=== PATIENT | female | born 1975 | race Two or more races ===

== ENCOUNTER 2024-11-19 17:19 | Emergency (ER) | payer BC, SELFPAY ==
[2024-11-19 17:20] VITALS: BMI 25.9
[2024-11-19 17:33] VITALS: BP 110/73; PULSE 75; RESP 17; TEMP 36.4; O2SAT 100
--- NOTE | 2024-11-19 17:46 | XR_ITS ---
Examination: CT abdomen and pelvis without contrast. Coronal 3-D reconstructions. Sagittal 2-D reconstructions. Date and time of exam:November 19, 2024 at 1847 hours Comparison September 25, 2004 INDICATIONS: Sudden onset mid abdominal pain with nausea today and beginning 3 days ago CTDI: vol (mGy): 8.69 DLP: (mGycm): 445 Technique: Axial images of the abdomen have been obtained, 3 mm slice thickness Intravenous contrast material has not been administered. Low dose protocols were performed. One or more of the following dose reduction techniques were used; automated exposure control, adjustment of the mA and/or KV according to patient size, use of iterative reconstruction technique. Findings: Small liver cysts Mucosal thickening in the body of the stomach coronal image 52 No gallstones No pancreatic or adrenal mass No renal or ureteral calculi Aorta normal size 4 mm fat-containing umbilical hernia Normal appendix No bowel obstruction No diverticulitis Anteverted uterus No adnexal mass Urinary bladder intact Moderate disc narrowing L5-S1 IMPRESSION: Gastritis pattern No renal or ureteral calculi, no hydronephrosis Normal appendix No bowel obstruction or diverticulitis
--- NOTE | 2024-11-19 17:47 | PD.EDRME ---
Rapid Medical Screening Exam RME Arrival date/time: 11/19/24 17:19 48-year-old female with no known medical history presents to the emergency room with a chief complaint of 10 out of 10 abdominal pain x 1 day I have greeted and performed a focused initial assessment of this patient. A comprehensive ED assessment and evaluation of the patient, analysis of all test results, and completion of the medical decision making process will be conducted by additional ED providers. Chief Complaint: Abdominal Pain Vital signs: Vital Signs Temperature 97.6 F 11/19/24 17:33 Pulse Rate 75 11/19/24 17:33 Respiratory Rate 17 11/19/24 17:33 Blood Pressure 110/73 11/19/24 17:33 Pulse Oximetry (%) 100 11/19/24 17:33 Oxygen Delivery Method Room Air 11/19/24 17:33 Vital signs reviewed by provider: Yes
[2024-11-19] MEDS: HYDROcodone/APAP 5/325 TABLET 1 TAB PO (18:01)
[2024-11-19] MEDS: ONDANSETRON ODT 4 MG TABRAP PO (18:01)
[2024-11-19] MEDS: MG HYD/AL HYD/SIME (Maalox Reg) SUSP 30 ML UDC PO (18:01)
[2024-11-19 18:27] LABS: Collection Type, Urine Clean Catch
[2024-11-19 18:34] LABS: Basophils % (Auto) 0 % (0-2.5); Eosinophils # (Auto) 0.2 Thou/mm3 (0.0-0.5); Eosinophils % (Auto) 2 % (0-10); Hematocrit 41.1 % (36.0-46.0); Hemoglobin 13.9 g/dL (12.0-16.0); Immature Granulocytes % (Auto) 0 % (0-0); Immature Granulocytes Auto 0.03 Thou/mm3 (0.00-0.00); Lymphocytes # (Auto) 2.3 Thou/mm3 (1.0-4.8); Lymphocytes % (Auto) 31 % (10-50); Mean Corpuscular HGB Conc 33.8 g/dl (31.0-37.0); Mean Corpuscular Hemoglobin 30.9 pg (25.0-35.0); Mean Corpuscular Volume 91 fL (80-100); Monocytes # (Auto) 0.6 Thou/mm3 (0.0-0.8); Monocytes % (Auto) 8 % (0-12); Neutrophils # (Auto) 4.4 Thou/mm3 (1.8-7.7); Neutrophils % (Auto) 59 % (37-80); Nucleated Red Blood Cell % 0 /100 WBC (0); Platelet Count 263 Thou/mm3 (140-440); RDW Standard Deviation 41.5 fL (36.4-46.3); White Blood Count 7.5 Thou/mm3 (3.6-11.0)
[2024-11-19 18:37] LABS: HCG Qualitative,Urine Negative
[2024-11-19 18:44] LABS: Alanine Aminotransferase 15 U/L (10-49); Albumin, Serum 4.5 gm/dL (3.5-5.0); Albumin/Globulin Ratio 1.8 (1.2-2.2); Alkaline Phosphatase 61 U/L (46-116); Anion Gap 12 (7-16); Aspartate Amino Transferase 19 U/L (0-34); BUN/Creatinine Ratio 7 Ratio (12-20); Bilirubin,Total 0.5 mg/dL (0.3-1.2); Blood Urea Nitrogen 7 mg/dL (9-23); Calcium 9.2 mg/dL (8.3-10.6); Calcium (Corrected) 9.2 mg/dL (8.5-10.1); Carbon Dioxide 21.8 mMol/L (20.0-31.0); Chloride 105 mMol/L (98-107); Estimated Creatinine Clearance 64.7 mL/min (>60); Globulin 2.5 gm/dL (2.3-3.5); Glucose 84 mg/dL (74-106); Lipase 45 U/L (12-53); Osmolality,Calculated 274 (275-295); Potassium 4.3 mMol/L (3.4-5.1); Sodium 139 mMol/L (136-145); eGFR > 60 See Note
[2024-11-19 18:57] LABS: Bacteria,Urine 3+; Bilirubin,Urine Negative (Negative); Blood,Urine Negative (Negative); Clarity,Urine Clear (Clear/Hazy); Color,Urine Colorless (Lt Yel-Yel); Glucose, Urine Negative (Negative); Ketones,Urine Negative (Negative); Leukocyte Esterase,Urine Negative (Negative); Nitrite,Urine Negative (Negative); Protein,Urine Negative (Neg - Trace); RBC,Urine 1 /hpf (0-3); Specific Gravity,Urine 1.004 (1.001-1.035); Squamous Epithelial Cell,Urine 7 /hpf (0-5); Urobilinogen,Urine Negative mg/dL (0.0-1.0); WBC,Urine 11 /hpf (0-5)
--- NOTE | 2024-11-19 21:30 | PD.EDABDPN ---
ED Abdominal Pain RME/HPI General Chief Complaint: Abdominal Pain Stated complaint: MID ABD PAIN WITH NAUSEA Time seen by provider: 11/19/24 18:38 Arrival date/time: 11/19/24 17:19 RME / HPI RME / HPI narrative: 11/19/24 17:19 48-year-old female with no known medical history presents to the emergency room with a chief complaint of 10 out of 10 abdominal pain x 1 day I have greeted and performed a focused initial assessment of this patient. A comprehensive ED assessment and evaluation of the patient, analysis of all test results, and completion of the medical decision making process will be conducted by additional ED providers. This section includes all my notes and documentations, including HPI, PE, and ED course. Aaron Blakely MD HPI: 48yo female with no significant past medical history presents to the ED for a chief complaint of epigastric pain x several days. No radiation or migration. Patient reports associated nausea. Patient denies any vomiting, fever, chills, dysuria, chest pain, shortness of breath or any other associated symptoms. No other complaints reported. ROS: All negative except as documented in HPI. Physical Exam: General: Alert and oriented. No acute distress when remaining still. Eyes: Conjunctivae and lids clear. ENT: No nasal congestion. Neck: Supple. Heart: RRR. Lungs: No respiratory distress. Good air movement. No rhonchi, wheezing, rales. Abdomen: Soft and epigastric tenderness. Normal bowel sounds. No distension. No rebound or guarding. Back: No CVA tenderness. Skin: Warm and dry. Neuro: Alert and oriented X 3. I reviewed all diagnostic test results. My review of the CT abdomen pelvis report is gastritis. Blood tests are unremarkable. Urinalysis is remarkable for UTI. At this point, diagnoses include stomach ulcer and UTI. Treatment here from me included Nitrofurantoin, Protonix, and Pepcid. Significant improvement noted. Recommended outpatient management. Based on my best medical judgment, made decision no further evaluation or treatment indicated at this time. Patient understands and agrees to the discharge instructions customized and printed, see below. Discharge instructions from Dr. Blakely: ?After evaluation, your symptoms are due to stomach ulcer (see attached handout). ?To help heal the ulcer, take Omeprazole 40 mg every morning and Famotidine 40 mg at bedtime for a week then as needed. ?Zofran for nausea/vomiting. Clear liquid diet for 24 hours. Then slowly advance diet as tolerated. ?Avoid food and beverages that can trigger and worsen ulcers. See attached handout. --Take Macrobid for UTI. For good hydration, increase oral fluid and maintain clear urine. If dark or yellow, increase oral fluid. ?See a private doctor on 11/23/2024 for recheck and further care. To make sure there is no serious intra-abdominal condition, ask for help with more investigation not available here in the ER. Such as EGD or scoping the stomach, colonoscopy or scoping the colon, and referral to see compensation/benefits specialist. Ask to review all test results and official radiology reports, to make sure you receive all necessary follow-ups and monitoring, including final urine culture results. ?Seek immediate medical care with worsening or with any concerns. Aaron Blakely MD Related Data Home Medications ?Medication ?Instructions ?Recorded ?Confirmed clonazepam 2 mg tablet 2 mg PO BID 12/20/23 02/21/24 Held on 02/11/24. Instructions: Resume on 02/12/24. levothyroxine 75 mcg tablet 75 mcg PO DAILY 12/20/23 02/21/24 nortriptyline 50 mg capsule 50 mg PO HS 12/20/23 02/21/24 pantoprazole 40 mg tablet,delayed 40 mg PO DAILY 12/20/23 02/21/24 release Previous Rx's ?Medication ?Instructions ?Recorded sennosides 8.6 mg-docusate sodium 1 tab-cap PO QDAY #30 tabs 12/23/23 50 mg tablet (Senna-S) famotidine 40 mg tablet 40 mg PO .bedtime #30 tabs 11/19/24 nitrofurantoin 100 mg PO BID #14 caps 11/19/24 monohydrate/macrocrystals 100 mg capsule (Macrobid) omeprazole 40 mg capsule,delayed 40 mg PO QDAY #30 caps 11/19/24 release ondansetron 4 mg disintegrating 4 mg PO TID PRN nausea and 11/19/24 tablet vomiting 30 days #10 tabs Allergies Allergy/AdvReac Type Severity Reaction Status Date / Time No Known Allergies Allergy Verified 11/19/24 17:22 Review of Systems Review of Systems Systems Reviewed: All systems reviewed, normal except as documented Past Medical History Past Medical History NEUROLOGIC: Negative Neurological Disorders or Seizures CARDIAC: Negative Cardiac Disorders or Congestive Heart Failure RESPIRATORY: Negative Chronic Obstructive Pulmonary Disease (COPD), Smoking or Smoking Exposure GASTROINTESTINAL: Negative Gastrointestinal Disorders or Hepatitis GENITOURINARY: Negative Genitourinary Disorders or Renal Disease REPRODUCTIVE: Positive Previous Pregnancies MUSCULOSKELETAL: Positive Musculoskeletal Disorders and Arthritis ENDOCRINE: Positive Endocrine Disorders and Hypothyroidism; Negative Diabetes Mellitus Type 1 or Diabetes Mellitus Type 2 HEMATOLOGIC: Negative Blood Disorders PSYCHO/SOCIAL: Positive Depression and Anxiety OTHER HISTORY: Positive Chicken Pox; Negative Hospitalization, Autoimmune Disease, Shingles, Blood Transfusions, Anesthesia Reactions or Cancer Family History FAMILY HISTORY: Positive Family Cardiac Disorders and Family Surgery; Negative Family Psychiatric Problems, Family Respiratory Disorders, Family Gastrointestinal Problems, Family Cancer or Family Anesthesia Reaction Surgical History SURGICAL: Positive Tubal Ligation Social History SMOKING STATUS: Never smoker ED Exam Narrative Physical exam: As noted in HPI. Course Quality Measures none Orders Category Date Time Status CT abdomen pelvis wo con Stat Exams 11/19/24 17:46 Completed CBC Stat Lab 11/19/24 17:55 Completed CMP [Comprehensive Metabolic Panel] Stat Lab 11/19/24 17:55 Completed HCG Qualitative,Urine Stat Lab 11/19/24 18:11 Completed Lipase Stat Lab 11/19/24 17:55 Completed UA [Urinalysis] Stat Lab 11/19/24 18:11 Completed Urine Culture Stat Lab 11/19/24 18:11 Received Famotidine [Pepcid] Med 11/19/24 21:33 Discontinued 40 mg PO X1 ONE HYDROcodone*/APAP 5/325 [[place] 5/325] Med 11/19/24 17:46 Discontinued 1 tab PO X1 ONE Nitrofurantoin Macro [Macrobid] Med 11/19/24 21:33 Discontinued 100 mg PO X1 ONE Ondansetron Odt [Zofran Odt] Med 11/19/24 17:46 Discontinued 4 mg PO X1 ONE Pantoprazole [Protonix] Med 11/19/24 21:33 Discontinued 40 mg PO X1 ONE mg Hyd/Al Hyd/Han Susp [Maalox Susp] Med 11/19/24 17:46 Discontinued 30 ml PO X1 ONE Vital Signs Vital signs: Vital Signs Temperature 97.6 F 11/19/24 17:33 Pulse Rate 75 11/19/24 17:33 Respiratory Rate 17 11/19/24 17:33 Blood Pressure 110/73 11/19/24 17:33 Pulse Oximetry (%) 100 11/19/24 17:33 Oxygen Delivery Method Room Air 11/19/24 17:33 Abdominal Pain MDM MDM Narrative MDM Narrative:: female with no significant past medical history presents to the ED for a chief complaint of epigastric pain x today. No radiation or migration. Patient reports associated nausea. Patient denies any vomiting, fever, chills, dysuria, chest pain, shortness of breath or any other associated symptoms. No other complaints reported. Patient data External records reviewed:: [facility] previous records (Per chart review, patient was seen here on 02/04/24 for chest pain.) Clinical information provided by:: patient Social determinants that could affect healthcare access:: none Patient has the following chronic illnesses:: hypothyroidism How is presenting disease/condition affected by chronic disease/condition?: uneffected by Evaluation data The following diagnostics were reviewed and interpreted by me:: lab results and radiology exam(s) Lab and/or radiology exams considered but not ordered:: none Interpretation Summary: I reviewed all diagnostic test results. My review of the CT abdomen pelvis report is gastritis. Blood tests are unremarkable. Urinalysis is remarkable for UTI. Medications / Prescriptions Medications or Prescriptions considered but not ordered:: none Medication administrations:: Medication Administration History Discontinued Medications Hydrocodone Bitart/Acetaminophen (Hydrocodone/Apap 5/325 Tablet) 1 tab PO X1 ONE Stop: 11/19/24 17:47 Last Admin: 11/19/24 18:01 Dose: 1 tab Documented By: Al Hydrox/Mg Hydrox/Simethicone (Mg Hyd/Al Hyd/Han (Maalox Reg) Susp 30 Ml Udc) 30 ml PO X1 ONE Stop: 11/19/24 17:47 Last Admin: 11/19/24 18:01 Dose: 30 ml Documented By: Famotidine (Famotidine 20 Mg Tablet) 40 mg PO X1 ONE Stop: 11/19/24 21:34 Nitrofurantoin Macrocrystals (Nitrofurantoin Macro 100 Mg Capsule) 100 mg PO X1 ONE Stop: 11/19/24 21:34 Ondansetron HCl (Ondansetron Odt 4 Mg Tabrap) 4 mg PO X1 ONE; Protocol Stop: 11/19/24 17:47 Last Admin: 11/19/24 18:01 Dose: 4 mg Documented By: Pantoprazole Sodium (Pantoprazole 40 Mg Tablet) 40 mg PO X1 ONE Stop: 11/19/24 21:34 From me, she was given nitrofurantoin, Protonix, Pepcid. Consultations Consultation(s) initiated? (list below): No Diagnosis Differential diagnosis abdominal pain: acute appendicitis, calculus of kidney, constipation, diverticulitis, endometriosis, gastroenteritis, pancreatitis, small bowel obstruction and other (UTI, pyelonephritis, GERD, gastritis, PUD) Most likely diagnosis given after review of the tests above:: Stomach ulcer, UTI Admission Indicated Admission indicated?: not indicated Explain why admission is indicated or not indicated:: With no severe illness, there was no indication for admission. Admission Request Was there a request for admission?: No Disposition Plan Disposition Plan: Discharge Discharge Attestation Discharge Attestation: The patient and all family members were given an opportunity to ask questions and understood the discharge instructions. Discharge instructions specifically effects, indications for sooner follow up or return to the emergency department, and the expected course of current diagnosis. Patient condition: Stable Discharge Plan Plan Patient Disposition: HOME (Self Care) Prescriptions/Referrals Prescriptions/Med Rec: New famotidine 40 mg tablet 40 mg PO .bedtime Qty: 30 0RF omeprazole 40 mg capsule,delayed release(DR/EC) 40 mg PO QDAY Qty: 30 0RF ondansetron 4 mg tablet,disintegrating 4 mg PO TID PRN (Reason: nausea and vomiting) 30 Days Qty: 10 0RF nitrofurantoin monohyd/m-cryst [Macrobid] 100 mg capsule 100 mg PO BID Qty: 14 0RF Rx Instructions: must administer with a meal/food No Action levothyroxine 75 mcg tablet 75 mcg PO DAILY Patient Comments: take 1 tablet by mouth once daily pantoprazole 40 mg tablet,delayed release (DR/EC) 40 mg PO DAILY Patient Comments: TAKE 1 TABLET BY MOUTH ONCE DAILY clonazepam 2 mg tablet 2 mg PO BID Patient Comments: TAKE 1 TABLET BY MOUTH TWICE A DAY nortriptyline 50 mg capsule 50 mg PO HS Patient Comments: TAKE 1 CAPSULE BY MOUTH EVERY DAY AT NIGHT sennosides-docusate sodium [Senna-S] 8.6-50 mg tablet 1 tab-cap PO QDAY Qty: 30 0RF Referrals: Sky Velasquez MD [Primary Care Provider] - In 1 week Problem List Clinical Impression: Stomach ulcer, UTI (urinary tract infection) Patient/Caregiver Discharge Instructions Discharge Activity: activity as tolerated Education Materials: ED PEPTIC ULCER vs GASTRITIS, ED CYSTITIS Female Adult Additional Instructions: Discharge instructions from Dr. Blakely: ?After evaluation, your symptoms are due to stomach ulcer (see attached handout).? ?To help heal the ulcer, take Omeprazole 40 mg every morning and Famotidine 40 mg at bedtime for a week then as needed. ?Zofran for nausea/vomiting.? Clear liquid diet for 24 hours.? Then slowly advance diet as tolerated. ?Avoid food and beverages that can trigger and worsen ulcers.? See attached handout. --Take Macrobid for UTI. For good hydration, increase oral fluid and maintain clear urine. If dark or yellow, increase oral fluid. ?See a private doctor on 11/23/2024 for recheck and further care. To make sure there is no serious intra-abdominal condition, ask for help with more investigation not available here in the ER.? Such as EGD or scoping the stomach, colonoscopy or scoping the colon, and referral to see compensation/benefits specialist. Ask to review all test results and official radiology reports, to make sure you receive all necessary follow-ups and monitoring, including final urine culture results. ?Seek immediate medical care with worsening or with any concerns. Print Language: [place] Stand Alone Forms: [employer] Award Info., Patient Portal Info Letter
[2024-11-19] MEDS: FAMOTIDINE 20 MG TABLET 40 MG PO (21:41)
[2024-11-19] MEDS: PANTOPRAZOLE 40 MG TABLET PO (21:41)
[2024-11-19] MEDS: NITROFURANTOIN MACRO 100 MG CAPSULE PO (21:42)
== END 2024-11-19 21:48 | disposition home or self-care (01) ==
PROVIDERS: Nurse Practitioner Family; Emergency Provider Emergency Medicine; PCP Internal Medicine
DX: K25.9 Gastric ulcer, unspecified as acute or chronic, without hemorrhage or perforation (principal); N39.0 Urinary tract infection, site not specified
CPT/HCPCS: 36415; 74176; 80053; 81001; 81025; 83690; 85025; 87077; 87086; 87186; 99284; Q0162; A9270

== ENCOUNTER → 2024-11-24 | Outpatient (CLI) | payer BC, OTHER, SELFPAY ==
--- NOTE | 2024-11-24 14:48 | XR_ITS ---
Examination: Abdomen AP single view Technique: AP portable supine abdomen, single view Exam date and time: November 24, 2024 1450 hours INDICATIONS: Right upper abdominal pain 5 days FINDINGS: There is a nonobstructive bowel gas pattern. No free air. No renal or ureteral calculi. Osseous structures are intact IMPRESSION: Nonobstructive bowel gas pattern
[2024-11-24 16:15] LABS: Collection Type, Urine Clean Catch
[2024-11-24 16:35] LABS: Basophils % (Auto) 0 % (0-2.5); Eosinophils # (Auto) 0.1 Thou/mm3 (0.0-0.5); Eosinophils % (Auto) 2 % (0-10); Hematocrit 36.5 % (36.0-46.0); Hemoglobin 13.2 g/dL (12.0-16.0); Immature Granulocytes % (Auto) 0 % (0-0); Immature Granulocytes Auto 0.02 Thou/mm3 (0.00-0.00); Lymphocytes % (Auto) 35 % (10-50); Mean Corpuscular HGB Conc 36.2 g/dl (31.0-37.0); Mean Corpuscular Hemoglobin 31.2 pg (25.0-35.0); Mean Corpuscular Volume 86 fL (80-100); Monocytes # (Auto) 0.5 Thou/mm3 (0.0-0.8); Monocytes % (Auto) 9 % (0-12); Neutrophils # (Auto) 3.1 Thou/mm3 (1.8-7.7); Neutrophils % (Auto) 53 % (37-80); Nucleated Red Blood Cell % 0 /100 WBC (0); Platelet Count 293 Thou/mm3 (140-440); Red Blood Count 4.23 Miln/mm3 (4.00-5.20); White Blood Count 5.7 Thou/mm3 (3.6-11.0)
[2024-11-24 16:43] LABS: Bacteria,Urine Rare; Bilirubin,Urine Negative (Negative); Blood,Urine Negative (Negative); Clarity,Urine Clear (Clear/Hazy); Color,Urine Lt-Yellow (Lt Yel-Yel); Glucose, Urine Negative (Negative); Ketones,Urine Negative (Negative); Leukocyte Esterase,Urine Negative (Negative); Nitrite,Urine Negative (Negative); Protein,Urine Negative (Neg - Trace); RBC,Urine 2 /hpf (0-3); Squamous Epithelial Cell,Urine 1 /hpf (0-5); Urobilinogen,Urine Negative mg/dL (0.0-1.0); WBC,Urine 1 /hpf (0-5)
[2024-11-24 16:47] LABS: Alanine Aminotransferase 19 U/L (10-49); Albumin, Serum 4.4 gm/dL (3.5-5.0); Albumin/Globulin Ratio 1.9 (1.2-2.2); Alkaline Phosphatase 61 U/L (46-116); Amylase 71 U/L (30-118); Anion Gap 10 (7-16); BUN/Creatinine Ratio 10 Ratio (12-20); Bilirubin,Total 0.4 mg/dL (0.3-1.2); Blood Urea Nitrogen 9 mg/dL (9-23); Calcium 9.1 mg/dL (8.3-10.6); Calcium (Corrected) 9.1 mg/dL (8.5-10.1); Carbon Dioxide 25.7 mMol/L (20.0-31.0); Chloride 108 mMol/L (98-107); Creatinine (Component) 0.9 mg/dL (0.6-1.3); Globulin 2.3 gm/dL (2.3-3.5); Glucose 87 mg/dL (74-106); Lipase 46 U/L (12-53); Osmolality,Calculated 284 (275-295); Potassium 4.2 mMol/L (3.4-5.1); Sodium 144 mMol/L (136-145); Total Protein 6.7 gm/dL (5.7-8.2); eGFR > 60 See Note
== END | disposition home or self-care (01) ==
PROVIDERS: PCP Internal Medicine; Referring Provider Specialist; Visit Provider Radiology Diagnostic Radiology
DX: R14.0 Abdominal distension (gaseous) (principal); R10.10 Upper abdominal pain, unspecified; R10.13 Epigastric pain
CPT/HCPCS: 36415; 74018; 80053; 81001; 82150; 83690; 85025

== ENCOUNTER 2024-12-02 16:38 | Inpatient (IN) | payer BC, OTHER, SELFPAY ==
[2024-12-02 16:40] VITALS: BMI 26.2
[2024-12-02 16:49] VITALS: BP 114/53; PULSE 75; RESP 20; TEMP 36.9; O2SAT 99
--- NOTE | 2024-12-02 16:54 | XR_ITS ---
Examination: Abdomen sonogram, Limited Date and time of exam: December 02, 2024 1807 hours INDICATIONS: Epigastric pain and nausea beginning 2 weeks ago right lobe severe cyst TECHNIQUE: Arnett scale sonographic images of abdomen FINDINGS: Normal gallbladder Normal common bile duct 0.5 cm Pancreatic head 2.2 cm Liver 14.7 cm right lobe 11 mm cyst Fatty infiltration Normal hepatopedal portal venous flow Patent IVC IMPRESSION: Normal gallbladder, 11 x 6 x 9 mm benign
--- NOTE | 2024-12-02 16:55 | PD.EDRME ---
Rapid Medical Screening Exam RME Arrival date/time: 12/02/24 16:38 48-year-old female presents emergency department today for complaints of abdominal pain for greater than 1 month patient was seen by GI specialist and was referred to the ER for further evaluation Chief Complaint: Abdominal Pain Time Seen by Provider: 12/02/24 16:42 Vital signs: Vital Signs Temperature 98.4 F 12/02/24 16:49 Pulse Rate 75 12/02/24 16:49 Respiratory Rate 20 12/02/24 16:49 Blood Pressure 114/53 L 12/02/24 16:49 Pulse Oximetry (%) 99 12/02/24 16:49 Oxygen Delivery Method Room Air 12/02/24 16:49
[2024-12-02 17:25] LABS: Basophils % (Auto) 0 % (0-2.5); Eosinophils # (Auto) 0.1 Thou/mm3 (0.0-0.5); Eosinophils % (Auto) 2 % (0-10); Hematocrit 35.9 % (36.0-46.0); Hemoglobin 12.9 g/dL (12.0-16.0); Immature Granulocytes % (Auto) 1 % (0-0); Immature Granulocytes Auto 0.03 Thou/mm3 (0.00-0.00); Lymphocytes # (Auto) 2.2 Thou/mm3 (1.0-4.8); Lymphocytes % (Auto) 34 % (10-50); Mean Corpuscular HGB Conc 35.9 g/dl (31.0-37.0); Mean Corpuscular Hemoglobin 30.9 pg (25.0-35.0); Mean Corpuscular Volume 86 fL (80-100); Monocytes # (Auto) 0.6 Thou/mm3 (0.0-0.8); Monocytes % (Auto) 9 % (0-12); Neutrophils # (Auto) 3.6 Thou/mm3 (1.8-7.7); Neutrophils % (Auto) 54 % (37-80); Nucleated Red Blood Cell % 0 /100 WBC (0); Platelet Count 284 Thou/mm3 (140-440); RDW Standard Deviation 39.1 fL (36.4-46.3); Red Blood Count 4.17 Miln/mm3 (4.00-5.20); White Blood Count 6.7 Thou/mm3 (3.6-11.0)
[2024-12-02 17:45] LABS: Alanine Aminotransferase 13 U/L (10-49); Albumin, Serum 4.3 gm/dL (3.5-5.0); Alkaline Phosphatase 58 U/L (46-116); Anion Gap 6 (7-16); Aspartate Amino Transferase 17 U/L (0-34); BUN/Creatinine Ratio 9 Ratio (12-20); Bilirubin,Total 0.4 mg/dL (0.3-1.2); Blood Urea Nitrogen 8 mg/dL (9-23); Calcium 9.4 mg/dL (8.3-10.6); Calcium (Corrected) 9.4 mg/dL (8.5-10.1); Carbon Dioxide 25.8 mMol/L (20.0-31.0); Chloride 108 mMol/L (98-107); Creatinine (Component) 0.9 mg/dL (0.6-1.3); Estimated Creatinine Clearance 72.3 mL/min (>60); Globulin 2.2 gm/dL (2.3-3.5); Glucose 98 mg/dL (74-106); Lipase 46 U/L (12-53); Osmolality,Calculated 277 (275-295); Potassium 4.1 mMol/L (3.4-5.1); Sodium 140 mMol/L (136-145); Total Protein 6.5 gm/dL (5.7-8.2); eGFR > 60 See Note
[2024-12-02] MEDS: HYDROcodone/APAP 5/325 TABLET 1 TAB PO (17:52)
[2024-12-02 17:53] LABS: Collection Type, Urine Clean Catch
[2024-12-02] MEDS: METOCLOPRAMIDE 5 MG TABLET 10 MG PO ×2 (17:53→23:25)
[2024-12-02 17:59] LABS: Bacteria,Urine 1+; Bilirubin,Urine Negative (Negative); Blood,Urine Negative (Negative); Clarity,Urine Clear (Clear/Hazy); Color,Urine Colorless (Lt Yel-Yel); Culture Indicated,Urine Yes; Glucose, Urine Negative (Negative); Ketones,Urine Negative (Negative); Leukocyte Esterase,Urine Negative (Negative); Nitrite,Urine Negative (Negative); PH,Urine 7.5 (5.0-7.0); Protein,Urine Negative (Neg - Trace); RBC,Urine 2 /hpf (0-3); Specific Gravity,Urine 1.008 (1.001-1.035); Squamous Epithelial Cell,Urine 3 /hpf (0-5); Urobilinogen,Urine Negative mg/dL (0.0-1.0); WBC,Urine 2 /hpf (0-5)
--- NOTE | 2024-12-02 18:01 | XR_ITS ---
Examination: CT abdomen with intravenous contrast CT pelvis with intravenous contrast 2-D coronal reconstructions 2-D sagittal reconstructions Date and time of exam:December 02, 2024 at 1935 hours INDICATIONS: Epigastric pain beginning 2 weeks ago COMPARISON: November 19, 2024. CTDI: vol (mGy) 8.31 DLP: (mGycm) 434 Technique: Multiple axial sections of the abdomen and pelvis have been obtained. 64 slice high-resolution scanner used. 3 mm axial sections have been obtained, post intravenous injection 60 cc [id number] 2-D sagittal, coronal reconstructions obtained. Low dose protocols were performed. One or more of the following dose reduction techniques were used; automated exposure control, adjustment of the mA and/or KV according to patient size, use of iterative reconstruction technique. Findings: No focal liver or splenic lesions Gastric mucosa is thickened No pancreatic mass No gallstones No renal or ureteral calculi, no hydronephrosis Aorta normal size No bowel obstruction Normal appendix 13 mm right adnexal cyst Anteverted uterus Urinary bladder intact Moderate narrowing L5-S1 disc IMPRESSION: Gastritis pattern
--- NOTE | 2024-12-02 18:26 | PD.EDABDPN ---
ED Abdominal Pain RME/HPI General Chief Complaint: Abdominal Pain Stated complaint: SENT BY HOFFMANN, WORK UP FOR PROCEDURE, C/O ABD Time seen by provider: 12/02/24 16:42 Arrival date/time: 12/02/24 16:38 RME / HPI RME / HPI narrative: 48-year-old female patient was sent to us by GI specialist, for evaluation regarding worsening epigastric pain. She been having epigastric pain, greater than 1 month, getting worse for the last 2 weeks. Patient was seen by GI specialist, and was sent to us for further evaluation. Patient denies any vomiting denies any fever denies any other complaints no medications taken prior to arrival. Related Data Home Medications ?Medication ?Instructions ?Recorded ?Confirmed clonazepam 2 mg tablet 2 mg PO BID 12/20/23 02/21/24 Held on 02/11/24. Instructions: Resume on 02/12/24. levothyroxine 75 mcg tablet 75 mcg PO DAILY 12/20/23 02/21/24 nortriptyline 50 mg capsule 50 mg PO HS 12/20/23 02/21/24 pantoprazole 40 mg tablet,delayed 40 mg PO DAILY 12/20/23 02/21/24 release Previous Rx's ?Medication ?Instructions ?Recorded sennosides 8.6 mg-docusate sodium 1 tab-cap PO QDAY #30 tabs 12/23/23 50 mg tablet (Senna-S) famotidine 40 mg tablet 40 mg PO .bedtime #30 tabs 11/19/24 nitrofurantoin 100 mg PO BID #14 caps 11/19/24 monohydrate/macrocrystals 100 mg capsule (Macrobid) omeprazole 40 mg capsule,delayed 40 mg PO QDAY #30 caps 11/19/24 release ondansetron 4 mg disintegrating 4 mg PO TID PRN nausea and 11/19/24 tablet vomiting 30 days #10 tabs Allergies Allergy/AdvReac Type Severity Reaction Status Date / Time No Known Allergies Allergy Verified 11/19/24 17:22 Review of Systems Review of Systems Narrative Review of Systems: Review of system reviewed and within normal limits except mentioned in HPI ED Exam Narrative Physical exam: VITAL SIGNS: Reviewed. GENERAL APPEARANCE: Alert and interactive, follows commands, no acute distress, HEAD AND FACE: Non-traumatic. ENT: PERRL, pink conjunctivitis, eyelid no trauma, Mucous membrane moist. NECK: Supple, nontender, no nuchal rigidity. CHEST: No tenderness, no crepitus, no paradoxical movement, no retractions. LUNGS: Clear, well ventilated, symmetric, no rales, no wheezing, no ronchi, no stridor, good breath sounds bilaterally. HEART: Regular rate, regular rhythm, no murmur, no gallops. ABDOMEN: Soft, positive bowel sounds, nondistended, no guarding, epigastric tenderness,, no rebound, no masses, RECTAL: Deferred. GENITAL: Deferred. NEUROLOGICAL: Gross motor function intact sensory function intact, Appropriate for age. MUSCULOSKELETAL: low back nontender, full range of motion. EXTREMITIES: Nontender, full range of motion. SKIN: Color pink, dry, no rash, no lacerations, no abrasions, no contusions. LYMPHATICS: Deferred. Course Quality Measures none Orders Category Date Time Status COVID-19 Screening Questionnaire NOW Care 12/02/24 20:[address] Screening NOW Care 12/02/24 18:01 Active Decision to Admit X1 Care 12/02/24 20:53 Active Consult to Gastroenterology Stat Cons 12/02/24 20:[address] abdomen pelvis w con Stat Exams 12/02/24 18:01 Completed US gall bladder Stat Exams 12/02/24 16:54 Completed CBC Stat Lab 12/02/24 17:19 Completed Comprehensive Metabolic Panel Stat Lab 12/02/24 17:19 Completed Lipase Stat Lab 12/02/24 17:19 Completed UA, C/S IF [Urinalysis, C/S if Indicated] Stat Lab 12/02/24 17:42 Completed Urine Culture Stat Lab 12/02/24 17:42 Received HYDROcodone*/APAP 5/325 [[place] 5/325] Med 12/02/24 17:45 Discontinued 1 tab PO X1 ONE Metoclopramide [Reglan] Med 12/02/24 17:45 Discontinued 10 mg PO X1 ONE Morphine Inj Med 12/02/24 20:52 Discontinued 4 mg IVP X1 ONE Ondansetron Inj [Zofran Inj] Med 12/02/24 20:52 Discontinued 4 mg IVP X1 ONE Pantoprazole Inj [Protonix Inj] Med 12/02/24 18:26 Discontinued 40 mg IVP X1 ONE Sodium Chloride 0.9% 1000 ml [Ns] 1,000 ml Med 12/02/24 20:53 Active IV 999 mls/hr Vital Signs Vital signs: Vital Signs Temperature 98.4 F 12/02/24 16:49 Pulse Rate 75 12/02/24 16:49 Respiratory Rate 20 12/02/24 16:49 Blood Pressure 114/53 L 12/02/24 16:49 Pulse Oximetry (%) 99 12/02/24 16:49 Oxygen Delivery Method Room Air 12/02/24 16:49 Abdominal Pain [facility] Narrative [facility] Narrative:: 48-year-old female patient was sent to us by GI specialist, for evaluation regarding worsening epigastric pain. She been having epigastric pain, greater than 1 month, getting worse for the last 2 weeks. Patient was seen by GI specialist, and was sent to us for further evaluation. Patient denies any vomiting denies any fever denies any other complaints no medications taken prior to arrival. Patient's workup all came back unremarkable. CT scan of the abdomen came back with gastritis pattern and was unremarkable. Patient case discussed with Dr. Hoffmann, who told me to admit the patient under hospitalist. Spoke with hospitalist who admitted the patient. Patient received IV fluids, Reglan morphine Zofran Protonix Patient data External records reviewed:: None Clinical information provided by:: patient Social determinants that could affect healthcare access:: none Patient has the following chronic illnesses:: None How is presenting disease/condition affected by chronic disease/condition?: no chronic disease Evaluation data The following diagnostics were reviewed and interpreted by me:: lab results and radiology exam(s) Lab and/or radiology exams considered but not ordered:: None Interpretation Summary: See results [facility] Medications / Prescriptions Medications or Prescriptions considered but not ordered:: None Medication administrations:: Medication Administration History Sodium Chloride (Ns) 1,000 mls @ 999 mls/hr IV .Q1H1M ONE Stop: 12/02/24 21:53 Discontinued Medications Hydrocodone Bitart/Acetaminophen (Hydrocodone/Apap 5/325 Tablet) 1 tab PO X1 ONE Stop: 12/02/24 17:46 Last Admin: 12/02/24 17:52 Dose: 1 tab Documented By: ERICKA Metoclopramide HCl (Metoclopramide 5 Mg Tablet) 10 mg PO X1 ONE Stop: 12/02/24 17:46 Last Admin: 12/02/24 17:53 Dose: 10 mg Documented By: ERICKA Morphine Sulfate (Morphine Sulf Inj 10 Mg/Ml Vial) 4 mg IVP X1 ONE Stop: 12/02/24 20:53 Ondansetron HCl (Ondansetron Inj 2 Mg/Ml Inj 2 Ml) 4 mg IVP X1 ONE; Protocol Stop: 12/02/24 20:53 Pantoprazole Sodium (Pantoprazole Inj 40 Mg Vial) 40 mg IVP X1 ONE Stop: 12/02/24 18:27 Last Admin: 12/02/24 19:52 Dose: 40 mg Documented By: WASHINGTON Otero morphine Zofran and IV fluids. Was also given IV Protonix. Consultations Consultation(s) initiated? (list below): Yes Consultation #1 (Physician, Specialty, Details): Dr. Hoffmann, thank you Dr. Hoffmann Diagnosis Differential diagnosis abdominal pain: abdominal pain, diverticulitis and gastroenteritis Most likely diagnosis given after review of the tests above:: Gastritis intractable epigastric abdominal pain Admission Indicated Admission indicated?: indicated Admission Request Was there a request for admission?: No Disposition Plan Disposition Plan: Admit Discharge Plan Prescriptions/Referrals Prescriptions/Med Rec: No Action famotidine 40 mg tablet 40 mg PO .bedtime Qty: 30 0RF omeprazole 40 mg capsule,delayed release(DR/EC) 40 mg PO QDAY Qty: 30 0RF ondansetron 4 mg tablet,disintegrating 4 mg PO TID PRN (Reason: nausea and vomiting) 30 Days Qty: 10 0RF nitrofurantoin monohyd/m-cryst [Macrobid] 100 mg capsule 100 mg PO BID Qty: 14 0RF Rx Instructions: must administer with a meal/food levothyroxine 75 mcg tablet 75 mcg PO DAILY Patient Comments: take 1 tablet by mouth once daily pantoprazole 40 mg tablet,delayed release (DR/EC) 40 mg PO DAILY Patient Comments: TAKE 1 TABLET BY MOUTH ONCE DAILY clonazepam 2 mg tablet 2 mg PO BID Patient Comments: TAKE 1 TABLET BY MOUTH TWICE A DAY nortriptyline 50 mg capsule 50 mg PO HS Patient Comments: TAKE 1 CAPSULE BY MOUTH EVERY DAY AT NIGHT sennosides-docusate sodium [Senna-S] 8.6-50 mg tablet 1 tab-cap PO QDAY Qty: 30 0RF Referrals: Sky Velasquez MD [Primary Care Provider] - In 1 week Problem List Clinical Impression: Intractable epigastric abdominal pain, Gastritis Patient/Caregiver Discharge Instructions Print Language: Greenlandic
[2024-12-02] MEDS: PANTOPRAZOLE INJ 40 MG VIAL IVP (19:52)
[2024-12-02] MEDS: SODIUM CHLORIDE 0.9% 1000 ML 1,000 ML 999 ML IV (21:48)
[2024-12-02] MEDS: ONDANSETRON INJ 2 MG/ML INJ 2 ML 4 MG IVP (21:52)
[2024-12-02 21:54] VITALS: BP 124/49; PULSE 60; RESP 16; TEMP 36.4; O2SAT 99
[2024-12-02] MEDS: MORPHINE SULF INJ 10 MG/ML VIAL 4 MG IVP (21:55)
--- NOTE | 2024-12-02 22:23 | ESHP_ITS ---
<Statement entered by Juli Rudd MD - 12/03/24 06:13> I uJli Rudd MD reviewed the note and agree with the resident's assessment & plan with exceptions as below. I have personally reviewed labs, imaging, home meds/prior records, examined the patient, formulated and discussed management plan with the IM team. 48-year-old female with Hx of hypothyroidism presented to ED with intractable epigastric pain, nausea with further workup revealing gastritis pattern on CT scan. GI had already been consulted with a plan for endoscopy. Keep n.p.o. after midnight, Protonix IV 40 mg twice daily. Provide IV fluid resuscitation with NS 75 mL an hour. Obtain lipid panel and beta-hCG to rule out . Documentation for date of: 12/02/24 HPI History of Present Illness Chief complaint: epigastric pain History of present illness: 48-year-old female with past medical history of hypothyroidism was admitted to the hospital on 12/02/2024 after come to the ED due to intractable epigastric pain for the past 2 weeks. On assessment patient stated that she has been having epigastric pain that has been constant for the past 2 weeks and this is accompanied by nausea and exacerbated with eating. Patient denied having any vomiting or dry heaves, she also denied having any headaches, blood in the stool, burning sensation urination, shortness of breath, or cough. Patient mentions she has not had any fevers or chills either and that she has been going to the GI specialist and she had a colonoscopy which was unrevealing. She said that recently she started taking some laxatives due to constipation and she has not noticed any dark stools or blood in the stools. She mentioned that her GI specialist told her that if her pain got out of proportion she should visit the ER where she did today. She denies any history of autoimmune diseases or any previous episodes of bleeding with vomit. ED course: Initially came in afebrile and normotensive. Initial labs were unremarkable For urine which showed positive for bacteria. Initial imaging included gallbladder ultrasound which did not show any cholecystitis or cholelithiasis and abdomen/pelvis CT that did show gastritis pattern. ED physician spoke with GI specialist who stated to admit the patient for possible endoscopy. PMH: Hypothyroidism Medications: Levothyroxine 88 mcg Social Hx: Denies any alcohol, smoking, hard illicit drugs Surgical Hx: None per patient Allergies: NKDA Review of Systems Review of Systems Systems Reviewed: All systems reviewed, normal except as documented Past Medical History Past Medical History NEUROLOGIC: Negative Neurological Disorders or Seizures CARDIAC: Negative Cardiac Disorders or Congestive Heart Failure RESPIRATORY: Negative Chronic Obstructive Pulmonary Disease (COPD), Smoking or Smoking Exposure GASTROINTESTINAL: Negative Gastrointestinal Disorders or Hepatitis GENITOURINARY: Negative Genitourinary Disorders or Renal Disease REPRODUCTIVE: Positive Previous Pregnancies MUSCULOSKELETAL: Positive Musculoskeletal Disorders and Arthritis ENDOCRINE: Positive Endocrine Disorders and Hypothyroidism; Negative Diabetes Mellitus Type 1 or Diabetes Mellitus Type 2 HEMATOLOGIC: Negative Blood Disorders PSYCHO/SOCIAL: Positive Depression and Anxiety OTHER HISTORY: Positive Chicken Pox; Negative Hospitalization, Autoimmune Disease, Shingles, Blood Transfusions, Anesthesia Reactions or Cancer Family History FAMILY HISTORY: Positive Family Cardiac Disorders and Family Surgery; Negative Family Psychiatric Problems, Family Respiratory Disorders, Family Gastrointestinal Problems, Family Cancer or Family Anesthesia Reaction Surgical History SURGICAL: Positive Tubal Ligation Social History SMOKING STATUS: Never smoker Exam Vital Signs Temp Pulse Resp BP Pulse Ox O2 Del Method 97.6 F 60 16 124/49 L 99 Room Air 12/02/24 21:54 12/02/24 21:54 12/02/24 21:54 12/02/24 21:54 12/02/24 21:54 12/02/24 21:54 Narrative Exam General: A/O x3, no acute distress, well-nourished, well-developed Eyes: PERRL, EOMI. Anicteric, vision grossly intact. Ears: No ear pain, no ear discharge, Hearing grossly intact. Nose: No nasal discharge. Mouth/Throat: Moist mucous membranes, no redness, no lesions. Neck: Neck supple, non-tender, no cervical lymphadenopathy. Lungs: Clear MARIANO to auscultation and percussion, No accessory muscle use. Cardio: Normal S1/S2, regular rhythm, no murmurs, no JVD Abdomen: Soft,tender in epigastric region, no palpable masses, peristalsis present, no guarding or rebound. Extremities: Symmetrical, no significant deformities, no peripheral edema , non-tender, peripheral pulses presents. Skin: No rashes, no lesions, warm to touch. Neuro: No focal neurological deficits. Psych: Cooperative, appropriate mood and effect. Results: Labs 12/02/24 17:19 12/02/24 17:19 Labs: Short CBC 12/02/24 Range/Units 17:19 WBC 6.7 (3.6-11.0) Thou/mm3 Hgb 12.9 (12.0-16.0) g/dL Hct 35.9 L (36.0-46.0) % Plt Count 284 (140-440) Thou/mm3 BMP 12/02/24 17:19 Sodium 140 Potassium 4.1 Chloride 108 H Carbon Dioxide 25.8 BUN 8 L Creatinine 0.9 Glucose 98 Calcium 9.4 Liver Function 12/02/24 Range/Units 17:19 Total Bilirubin 0.4 (0.3-1.2) mg/dL AST 17 (0-34) U/L ALT 13 (10-49) U/L Alkaline Phosphatase 58 (46-116) U/L Albumin 4.3 (3.5-5.0) gm/dL Urine 12/02/24 Range/Units 17:42 Urine Color Colorless A (Lt Yel-Yel) Urine Clarity Clear (Clear/Hazy) Urine pH 7.5 H (5.0-7.0) Ur Specific [place] 1.008 (1.001-1.035) Urine Protein Negative (Neg - Trace) Urine Glucose (UA) Negative (Negative) Quality Measures Quality Measures none Medications Home Medications and Allergies Home Medications ?Medication ?Instructions ?Recorded ?Confirmed ?Type clonazepam 2 mg tablet 2 mg PO BID 12/20/23 5 History Held on 02/11/24. Instructions: Resume on 02/12/24. levothyroxine 75 mcg tablet 75 mcg PO DAILY 12/20/23 0 12/02/24 History nortriptyline 50 mg capsule 50 mg PO HS 12/20/2312/02 History pantoprazole 40 mg tablet,delayed 40 mg PO DAILY 12/1912/02/24 History release levothyroxine 88 mcg tablet 88 mcg PO QDAY 12/02/24 History Allergies Allergy/AdvReac Type Severity Reaction Status Date / Time No Known Allergies Allergy Verified 11/19/24 17:22 Visit Medications Acetaminophen (Acetaminophen 325 Mg Tablet) 650 mg PO Q6H PRN PRN Reason: pain and Fever >100.4 Stop: 01/01/25 22:18 Lactated Ringer's (Lactated Ringers) 1,000 mls @ 75 mls/hr IV .[id number] [facility] Stop: 12/03/24 11:49 Metoclopramide HCl (Metoclopramide 5 Mg Tablet) 10 mg PO Q6H PRN PRN Reason: NAUSEA OR VOMITING Stop: 01/01/25 22:18 Pantoprazole Sodium (Pantoprazole Inj 40 Mg Vial) 40 mg IVP BID ASHANTI Stop: 01/02/25 08:59 Discontinued Medications Hydrocodone Bitart/Acetaminophen (Hydrocodone/Apap 5/325 Tablet) 1 tab PO X1 ONE Stop: 12/02/24 17:46 Last Admin: 12/02/24 17:52 Dose: 1 tab Sodium Chloride (Ns) 1,000 mls @ 999 mls/hr IV .Q1H1M ONE Stop: 12/02/24 21:53 Last Admin: 12/02/24 21:48 Dose: 999 mls/hr Metoclopramide HCl (Metoclopramide 5 Mg Tablet) 10 mg PO X1 ONE Stop: 12/02/24 17:46 Last Admin: 12/02/24 17:53 Dose: 10 mg Morphine Sulfate (Morphine Sulf Inj 10 Mg/Ml Vial) 4 mg IVP X1 ONE Stop: 12/02/24 20:53 Last Admin: 12/02/24 21:55 Dose: 4 mg Ondansetron HCl (Ondansetron Inj 2 Mg/Ml Inj 2 Ml) 4 mg IVP X1 ONE; Protocol Stop: 12/02/24 20:53 Last Admin: 12/02/24 21:52 Dose: 4 mg Pantoprazole Sodium (Pantoprazole Inj 40 Mg Vial) 40 mg IVP X1 ONE Stop: 12/02/24 18:27 Last Admin: 12/02/24 19:52 Dose: 40 mg Assessment & Plan Plan 48-year-old female with past medical history of hypothyroidism was admitted to the hospital on 12/02/2024 for intractable epigastric pain likely 2/2 to gastric ulcer. #Intractable epigastric pain #Gastritis #Possible gastric ulcer Patient has been having epigastric pain around 2 weeks and this is exacerbated with eating. Abdomen/pelvis CT that showed gastritis pattern DDx includes peptic ulcer disease Plan: Protonix twice daily IV fluids Pain management with morphine, [place], and Tylenol N.p.o. after midnight for possible endoscopy GI consulted, appreciate commendations #Hypothyroidism Restart levothyroxine after med reconciliation is done and not NPO. TSH for morning labs Disposition: Patient admitted to med surg for possible gastric ulcer. Diet: NPO midnight GI prophylaxis: protonix DVT prophylaxis: SCDs Code: Full Case disclosed with Attending Dr. Tobin Billings PGY1 Disclaimer: Even though this this note was dictated by speech recognition and even though it was carefully revised there may still be minor errors in plating and point assembly supervisor due to voice recognition software.
--- NOTE | 2024-12-02 22:42 | PD.IMCONS ---
HPI Data of Consult Requesting Physician: Juli Rudd MD Primary Care Provider: Sky Velasquez MD Consult Narrative Reason for consult: Intractable epigastric pain, nausea, postprandial exacerbation. History of present illness: 48 is a female I been working with her as an outpatient has severe epigastric upper abdominal pain in the epigastric left upper quadrant area It has complete nausea but no vomiting Patient also has postprandial exacerbation of this pain Outpatient ultrasound of the problem was negative for cholelithiasis CT scan of the abdomen pelvis is also negative for any acute abnormalities cc:: cc: Juli Rudd MD Review of Systems Review of Systems Systems Reviewed: All systems reviewed, normal except as documented Past Medical History Surgical History OTHER SURGICAL HX: Hypothyroidism Meds Home Medications and Allergies Home Medications ?Medication ?Instructions ?Recorded ?Confirmed ?Type clonazepam 2 mg tablet 2 mg PO BID 12/20/23 12/02/24 History Held on 02/11/24. Instructions: Resume on 02/12/24. levothyroxine 75 mcg tablet 75 mcg PO DAILY 12/20/23 12/02/24 History nortriptyline 50 mg capsule 50 mg PO HS 12/20/23 12/02/24 History pantoprazole 40 mg tablet,delayed 40 mg PO DAILY 12/20/23 12/02/24 History release levothyroxine 88 mcg tablet 88 mcg PO QDAY 12/02/24 12/02/24 History Allergies Allergy/AdvReac Type Severity Reaction Status Date / Time No Known Allergies Allergy Verified 11/19/24 17:22 Exam Vital Signs Temp Pulse Resp BP Pulse Ox O2 Del Method 97.6 F 60 16 124/49 L 99 Room Air 12/02/24 21:54 12/02/24 21:54 12/02/24 21:54 12/02/24 21:54 12/02/24 21:54 12/02/24 21:54 Constitutional Comments: In severe pain and crying Routine Cardiovascular Exam Comments: S1-S2 without any murmur Routine Abdominal Exam Comments: Soft midepigastric tenderness Results Labs 12/03/24 05:55 12/03/24 05:55 Labs: Short CBC 12/02/24 Range/Units 17:19 WBC 6.7 (3.6-11.0) Thou/mm3 Hgb 12.9 (12.0-16.0) g/dL Hct 35.9 L (36.0-46.0) % Plt Count 284 (140-440) Thou/mm3 BMP 12/02/24 17:19 Sodium 140 Potassium 4.1 Chloride 108 H Carbon Dioxide 25.8 BUN 8 L Creatinine 0.9 Glucose 98 Calcium 9.4 Liver Function 12/02/24 Range/Units 17:19 Total Bilirubin 0.4 (0.3-1.2) mg/dL AST 17 (0-34) U/L ALT 13 (10-49) U/L Alkaline Phosphatase 58 (46-116) U/L Albumin 4.3 (3.5-5.0) gm/dL Urine 12/02/24 Range/Units 17:42 Urine Color Colorless A (Lt Yel-Yel) Urine Clarity Clear (Clear/Hazy) Urine pH 7.5 H (5.0-7.0) Ur Specific [place] 1.008 (1.001-1.035) Urine Protein Negative (Neg - Trace) Urine Glucose (UA) Negative (Negative) Assessment and Plan Additional Assessment & Plan Additional Plan: Intractable abdominal pain with nausea and postprandial exacerbation Differential diagnoses include Atypical biliary disease Peptic ulcer disease Plan N.p.o. IV fluids IV Protonix Pain control CCK HIDA scan with ejection fraction of the gallbladder Consent obtained for fiberoptic esophagogastroduodenoscopy with possible biopsy possible therapeutic intervention under intravenous moderate sedation Care plan discussed with the admitting resident Thank you very much for the opportunity to participate in the care of this patient
--- NOTE | 2024-12-02 22:43 | XR_ITS ---
Examination: HIDA, hepatobiliary radioisotope scan Gallbladder ejection fraction study. Date and time of exam: 08/05/2024 1155 hours INDICATIONS: Upper abdominal pain epigastric pain 2 weeks with nausea Technique: 5.8 mCi of 99M Hepatolite administered. Serial imaging then obtained from immediate through 60 minutes. 1.4 mcg selective catheter Kinevac administered for gallbladder ejection fraction study. Findings: Radioisotope activity within the liver is reasonably homogenous. Gallbladder, common bile duct small bowel activity noted Impression: Gallbladder activity Abnormal gallbladder ejection fraction, 12%, normal greater than 35%
[2024-12-02 23:04] VITALS: BMI 27.1
[2024-12-02] MEDS: RINGERS LACTATED 1000 ML 1,000 ML 75 ML IV (23:26)
[2024-12-03] VITALS (18 sets, daily range): BP systolic 95–134; BP diastolic 52–89; PULSE 58–88; RESP 12–99; TEMP 36.1–36.6; O2SAT 89–100
[2024-12-03] MEDS: ACETAMINOPHEN 325 MG TABLET 650 MG PO ×3 (03:49→14:28)
[2024-12-03 04:32] LABS: HCG Qualitative,Urine Negative
--- NOTE | 2024-12-03 05:54 | PC.NURSE ---
Addendum entered by Errol Law RN 12/03/24 05:56: Dr. Hagen said he will put an order for ibuprofen. Original Note: Patient c/o of headache despite tylenol 650mg given at 0349. Dr. Hagen made aware and he said he will notify the day team.
[2024-12-03 06:28] LABS: Basophils % (Auto) 1 % (0-2.5); Eosinophils # (Auto) 0.1 Thou/mm3 (0.0-0.5); Eosinophils % (Auto) 2 % (0-10); Hematocrit 33.1 % (36.0-46.0); Hemoglobin 11.7 g/dL (12.0-16.0); Immature Granulocytes % (Auto) 0 % (0-0); Immature Granulocytes Auto 0.01 Thou/mm3 (0.00-0.00); Lymphocytes # (Auto) 1.6 Thou/mm3 (1.0-4.8); Lymphocytes % (Auto) 29 % (10-50); Mean Corpuscular HGB Conc 35.3 g/dl (31.0-37.0); Mean Corpuscular Hemoglobin 31.3 pg (25.0-35.0); Mean Corpuscular Volume 89 fL (80-100); Monocytes # (Auto) 0.5 Thou/mm3 (0.0-0.8); Monocytes % (Auto) 9 % (0-12); Neutrophils # (Auto) 3.3 Thou/mm3 (1.8-7.7); Neutrophils % (Auto) 60 % (37-80); Nucleated Red Blood Cell % 0 /100 WBC (0); Platelet Count 239 Thou/mm3 (140-440); RDW Standard Deviation 40.5 fL (36.4-46.3); Red Blood Count 3.74 Miln/mm3 (4.00-5.20); White Blood Count 5.6 Thou/mm3 (3.6-11.0)
[2024-12-03 07:07] LABS: Alanine Aminotransferase 10 U/L (10-49); Albumin, Serum 3.5 gm/dL (3.5-5.0); Albumin/Globulin Ratio 2.1 (1.2-2.2); Alkaline Phosphatase 46 U/L (46-116); Anion Gap 7 (7-16); Aspartate Amino Transferase 13 U/L (0-34); BUN/Creatinine Ratio 8 Ratio (12-20); Bilirubin,Total 0.5 mg/dL (0.3-1.2); Blood Urea Nitrogen 6 mg/dL (9-23); Calcium 8.6 mg/dL (8.3-10.6); Carbon Dioxide 24.8 mMol/L (20.0-31.0); Cardiac Risk Estimate 3.4 RATIO (3.7-5.6); Chloride 109 mMol/L (98-107); Cholesterol 110 mg/dL (132-200); Creatinine (Component) 0.8 mg/dL (0.6-1.3); Estimated Creatinine Clearance 82.6 mL/min (>60); Globulin 1.7 gm/dL (2.3-3.5); Glucose 89 mg/dL (74-106); HDL Cholesterol 32 mg/dL (40-60); LDL Cholesterol,Calculated 61 mg/dL (0-130); Magnesium 2.1 mg/dL (1.6-2.6); Osmolality,Calculated 277 (275-295); Potassium 3.9 mMol/L (3.4-5.1); Sodium 141 mMol/L (136-145); Thyroid Stimulating Hormone 2.34 uIU/mL (0.55-4.78); Total Protein 5.2 gm/dL (5.7-8.2); Triglycerides 87 mg/dL (30-150); eGFR > 60 See Note
[2024-12-03] MEDS: PANTOPRAZOLE INJ 40 MG VIAL IVP ×2 (08:26→20:34)
[2024-12-03] MEDS: METOCLOPRAMIDE INJ 5 MG/ML VIAL 2 ML IVP ×2 (08:30→14:28)
--- NOTE | 2024-12-03 10:44 | PC.SS ---
Kenia Jain is a 48-year-old female admitted to Med Surg for Intractable Epigastric Pain. SS conducted bedside contact with the patient to complete initial assessment and to discuss discharge planning. Role and reason explained. Patient confirmed demographic information. Patient identifies Jcaob Jain [phone] as her surrogate decision maker. Pt states she is able to complete all ADL?s independently. No need for any source of DME. Pts PCP is Dr. Velasquez. Pharmacy of choice is [facility] in [place]. Discharge options discussed and the pt wishes to return home.? Family will provide transportation upon DC. No further intervention required at this time, social work coordinator would be available to address any further concerns. DC Plan: Home Contact: Jacob Address: Confirmed on face sheet PCP: Eva
[2024-12-03] MEDS: SUMAtriptan 25 MG TABLET PO ×3 (10:56→23:32)
--- NOTE | 2024-12-03 12:45 | ESPR_ITS ---
<Statement entered by Fabián Welch MD - 12/03/24 16:10> I discussed with and supervised the software developer intern physician involved in the care of this patient. Patient assessment and plan was discussed with entire medicine team, including my attending. I agree with the assessment and plan as documented by software developer intern doctor. Patient care was discussed with my attending physician Dr. Daniela Welch, PGY-2 Documentation for date of: 12/03/24 Subjective Subjective Interval history: Patient is seen and examined at bedside Admitted overnight in view of epigastric pain, worsening with food intake Still complaining of mild epigastric pain, also complaining of severe migraine headache Vitals are stable. On physical examination, noted tenderness in right upper quadrant and epigastric area CT abdomen/pelvis showed gastritis pattern. HIDA scan done today showed decreased EF 12% Dr. Abdi was consulted and patient is pending endoscopy later today Dr. Frost was consulted in view of decreased gallbladder EF Patient was given sumatriptan as needed for migraine headache and started on IV fluids, LR at 125 mL/h Exam Vital Signs Temp Pulse Resp BP Pulse Ox O2 Del Method 97.4 F 67 18 117/66 99 Room Air 12/03/24 12:00 12/03/24 12:00 12/03/24 12:00 12/03/24 12:00 12/03/24 12:12/03/24 12:00 Narrative Exam General: Awake. HEENT: Normocephalic, atraumatic, mucous membranes moist. Heart: Regular rate and rhythm, no murmurs. Lungs: Clear to auscultation with no wheezing or crackles. Abdomen: Soft, nondistended, mild to moderate tenderness noted in right upper quadrant and epigastric area, positive bowel sounds. ?No guarding or rebound tenderness. Neurologic: Alert and oriented x3, no gross neurological deficit, and patient able to move all 4 extremities. Extremities: No edema. Skin: No rash or ecchymoses. Objective Labs 12/03/24 05:55 12/03/24 05:55 Labs: Laboratory Results - last 24 hr 12/02/24 12/02/24 12/03/24 17:19 17:42 03:49 WBC 6.7 RBC 4.17 Hgb 12.9 Hct 35.9 L MCV 86 MCH 30.9 MCHC 35.9 RDW Std Deviation 39.1 Plt Count 284 Neut % (Auto) 54 Lymph % (Auto) 34 [place] % (Auto) 9 Eos % (Auto) 2 Baso % (Auto) 0 Neut # (Auto) 3.6 Lymph # (Auto) 2.2 [place] # (Auto) 0.6 Eos # (Auto) 0.1 Baso # (Auto) 0.0 Immature Gran # (Auto) 0.03 H Absolute Nucleated RBC 0.00 Immature Gran % 1 H Nucleated RBC % 0 Sodium 140 Potassium 4.1 Chloride 108 H Carbon Dioxide 25.8 Anion Gap 6 L BUN 8 L Creatinine 0.9 Estim Creat Clear Calc 72.3 eGFR > 60 BUN/Creatinine Ratio 9 L Glucose 98 Calculated Osmolality 277 Calcium 9.4 Corrected Calcium 9.4 Magnesium Total Bilirubin 0.4 AST 17 ALT 13 Alkaline Phosphatase 58 Total Protein 6.5 Albumin 4.3 Globulin 2.2 L Albumin/Globulin Ratio 2.0 Triglycerides Cholesterol LDL Cholesterol, Calc HDL Cholesterol Cholesterol/HDL Ratio Lipase 46 TSH Ur Collection Type Clean Catch Urine Color Colorless A Urine Clarity Clear Urine pH 7.5 H Ur Specific [place] 1.008 Urine Protein Negative Urine Glucose (UA) Negative Urine Ketones Negative Urine Blood Negative Urine Nitrite Negative Urine Bilirubin Negative Urine Urobilinogen (Auto) Negative Ur Leukocyte Esterase Negative Urine RBC 2 Urine WBC 2 Ur Squamous Epith Cells 3 Urine Bacteria 1+ A Ur Culture Indicated? Yes Urine HCG, Qual Negative 12/03/24 05:55 WBC 5.6 RBC 3.74 L Hgb 11.7 L Hct 33.1 L MCV 89 MCH 31.3 MCHC 35.3 RDW Std Deviation 40.5 Plt Count 239 D Neut % (Auto) 60 Lymph % (Auto) 29 [place] % (Auto) 9 Eos % (Auto) 2 Baso % (Auto) 1 Neut # (Auto) 3.3 Lymph # (Auto) 1.6 [place] # (Auto) 0.5 Eos # (Auto) 0.1 Baso # (Auto) 0.0 Immature Gran # (Auto) 0.01 H Absolute Nucleated RBC 0.00 Immature Gran % 0 Nucleated RBC % 0 Sodium 141 Potassium 3.9 Chloride 109 H Carbon Dioxide 24.8 Anion Gap 7 BUN 6 L Creatinine 0.8 Estim Creat Clear Calc 82.6 eGFR > 60 BUN/Creatinine Ratio 8 L Glucose 89 Calculated Osmolality 277 Calcium 8.6 Corrected Calcium 9.0 Magnesium 2.1 Total Bilirubin 0.5 AST 13 ALT 10 Alkaline Phosphatase 46 D Total Protein 5.2 L Albumin 3.5 D Globulin 1.7 L Albumin/Globulin Ratio 2.1 Triglycerides 87 Cholesterol 110 L LDL Cholesterol, Calc 61 HDL Cholesterol 32 L Cholesterol/HDL Ratio 3.4 L Lipase TSH 2.34 Ur Collection Type Urine Color Urine Clarity Urine pH Ur Specific [place] Urine Protein Urine Glucose (UA) Urine Ketones Urine Blood Urine Nitrite Urine Bilirubin Urine Urobilinogen (Auto) Ur Leukocyte Esterase Urine RBC Urine WBC Ur Squamous Epith Cells Urine Bacteria Ur Culture Indicated? Urine HCG, Qual Quality Measures Quality Measures none Assessment & Plan Assessment Current Active Medications: Generic Name Dose Route Start Last Admin Trade Name Freq PRN Reason Stop Dose Admin Acetaminophen 650 mg 12/02/24 22:19 12/03/24 03:49 Acetaminophen 325 Mg Tablet PO 01/01/25 22:18 650 mg Q6H PRN Administration pain 1-3 and Fever >100.4 Hydrocodone Bitart/Acetaminophen 1 tab 12/02/24 22:19 Hydrocodone/Apap 5/325 Tablet PO 12/07/24 22:18 Q4HR PRN PAIN SCALE 4-6 (Moderate Metoclopramide HCl 5 mg 12/03/24 08:23 12/03/24 08:30 Metoclopramide Inj 5 Mg/Ml Vial 2 Ml IVP 01/02/25 11:59 5 mg Q6HR PRN Administration NAUSEA OR VOMITING Protocol Morphine Sulfate 1 mg 12/02/24 22:19 Morphine Sulf Inj 10 Mg/Ml Vial IVP 12/07/24 22:18 Q2H PRN PAIN SCALE 7-10 (Severe Pantoprazole Sodium 40 mg 12/03/24 09:00 12/03/24 08:26 Pantoprazole Inj 40 Mg Vial IVP 01/02/25 08:59 40 mg BID ASHANTI Administration Plan 48-year-old female with past medical history of hypothyroidism was admitted to the hospital on 12/02/2024 for intractable epigastric pain likely 2/2 to gastric ulcer. #Intractable epigastric pain #Gastritis vs #Possible gastric ulcer Patient has been having epigastric pain around 2 weeks and this is exacerbated with eating. Abdomen/pelvis CT that showed gastritis pattern Gallbladder ultrasound did not show any stones or abnormality. HIDA scan showed EF 12% suggesting decreased motility DDx includes peptic ulcer disease in the setting of NSAIDs usage vs Gall bladder dysmotility Plan: Protonix twice daily IV fluids, LR @ 125 ml/hr Pain management with morphine, [place], and Tylenol GI consulted, appreciate commendations - N.p.o. after midnight for possible endoscopy Consulted Dr. Frost, in view of abnormal gallbladder ejection fraction # Migraine headaches - Patient reported that she is having migraine headaches since a long time - Following Dr. Reyes, gets Botox injections every 3 months and also endorsed that Nurtec is not helping her - Reported that she is using ibuprofen for the headaches continuously, 4-5 times in a week last dose was 1 week ago-which could be the cause of gastritis Plan - Started on sumatriptan 25 mg as needed every 6 hourly and Tylenol as needed #Hypothyroidism Restart levothyroxine after med reconciliation is done TSH is WNL during this admission Disposition: Patient admitted to med surg for possible gastric ulcer. Diet: NPO midnight GI prophylaxis: protonix DVT prophylaxis: SCDs Code: Full Patient plan of care was discussed with the attending physician, Dr. Suarez and senior resident Dr. Yuri Fernandez, PGY1 Attending Provider Attestation/Addendum I have discussed and was present for the essential components of the history, physical examination, diagnosis, and treatment plan with the resident. I agree with the patient's care as documented by the resident and amended herein by me. Jelani Suarez DO. Patient seen and evaluated this AM. New admit overnight, admitted for intractable epigastric pain, nausea and vomiting. No acute events since admission, this morning patient does have complaints of headache. Labs largely unremarkable with exception of a hemoglobin of 11.7, which is a new finding, no signs of GIB. CT abdomen pelvis significant for gastritis, gallbladder ultrasound unremarkable. HIDA scan demonstrating an abnormal gallbladder ejection fraction of 12%. Gastroenterology consulted, appreciate recommendations. Will also consult surgery. Will continue Reglan, Protonix, IVF for now continue to monitor closely. Although this document has been carefully reviewed, there may still be some phonetic and other typographical errors. These errors are purely grammatical due to imperfections in the software program and should not be construed in any way to compromise the substance of the patient's medical care during this visit.
[2024-12-03] MEDS: RINGERS LACTATED 1000 ML 1,000 ML 125 ML IV (14:33)
--- NOTE | 2024-12-03 15:25 | PD.SURCONS ---
HPI Consult details Consult date: 12/03/24 Reason for consultation narrative: Intractable abdominal pain with nausea Requesting physician: Rebel Abdi History of present illness: 48-year-old female with history of hypothyroid was admitted with intractable abdominal pain with nausea after eating. She has had over 2 weeks history of intermittent epigastric and right upper quadrant abdominal pain radiating to her back. Her pain is exacerbated by eating associated with bloating, nausea and dry heaves. She denies having similar symptoms in the past. CT scan of abdomen pelvis showed gastritis pattern. Abdominal ultrasound was unremarkable and HIDA scan revealed biliary dyskinesia with ejection fraction 12%. Review of Systems Constitutional Constitutional: Denies chills and Denies fever(s) Cardiovascular Cardiovascular: Denies chest pain Respiratory Respiratory: Denies cough Gastrointestinal Gastrointestinal: Reports abdominal pain, Reports nausea and Denies vomiting Genitourinary Genitourinary: Denies difficulty voiding Musculoskeletal Musculoskeletal: Reports back pain Hematologic/Lymphatic Hematologic/Lymphatic: Denies easy bleeding and Denies easy bruising Past Medical History Surgical History OTHER SURGICAL HX: Right knee arthroscopy, tubal ligation Social History SMOKING STATUS: Never smoker SUBSTANCE USE: does not use ALCOHOL: Never Meds Home Medications and Allergies Home Medications ?Medication ?Instructions ?Recorded ?Confirmed ?Type clonazepam 2 mg tablet 2 mg PO BID 12/20/23 12/02/24 History Held on 02/11/24. Instructions: Resume on 02/12/24. levothyroxine 75 mcg tablet 75 mcg PO DAILY 12/20/23 12/02/24 History nortriptyline 50 mg capsule 50 mg PO HS 12/20/23 12/02/24 History pantoprazole 40 mg tablet,delayed 40 mg PO DAILY 12/20/23 12/02/24 History release levothyroxine 88 mcg tablet 88 mcg PO QDAY 12/02/24 12/02/24 History Allergies Allergy/AdvReac Type Severity Reaction Status Date / Time No Known Allergies Allergy Verified 11/19/24 17:22 Exam Vital Signs Temp Pulse Resp BP Pulse Ox O2 Del Method 97.4 F 67 18 117/66 99 Room Air 12/03/24 12:00 12/03/24 12:00 12/03/24 12:00 12/03/24 12:00 12/03/24 12:00 12/03/24 12:00 Constitutional Constitutional: no acute distress Routine HEENT Exam Eye: Present PERRL (Anicteric sclera) Routine Abdominal Exam Comments: Abdomen is soft and nondistended. She has epigastric and right upper quadrant tenderness to deep palpation, no rebound tenderness or peritonitis at this time Results Results: Laboratory Laboratory results: results reviewed Results: Imaging Imaging narrative: CT scan of abdomen pelvis, HIDA scan and abdominal ultrasound images reviewed, radiologist interpretation noted Assessment & Plan Problem List (1) Biliary dyskinesia: Status: Acute Plan Keep n.p.o. after midnight. Will plan for laparoscopic possible open cholecystectomy tomorrow. Risks include but not limited to infection, bleeding, injury to bowel, liver, stomach, bile duct, bile leak, abdominal sepsis and or abdominal abscess, need for further procedure and or operation discussed with the patient and her . Benefits and alternatives explained to them, all their questions answered, they agreed and consented to proceed with the operation. I wish to extend my most sincere thanks to Dr. Abdi for consulting me and allowing me to evaluate and participate in care of this patient.
--- NOTE | 2024-12-03 21:27 | SUR.PHASEI ---
Pt. arrived to recovery via gurney, eyes closed, responds to verbal commands, VSS, no c/o pain or nausea at this time. Lung sounds clear, equal expansion thuy., report received from Mary BABIN.
--- NOTE | 2024-12-03 21:46 | SUR.PHASEI ---
Called and gave report on pt. s/p surgery to Narda BABIN.
--- NOTE | 2024-12-03 21:51 | SUR.PHASEI ---
Pt. transferred to room 368 via SHERLY woo, no c/o pain or nausea at this time, Narda BABIN assumed care pt.
[2024-12-03] MEDS: HYDROcodone/APAP 5/325 TABLET 1 TAB PO (22:19)
[2024-12-04] VITALS (18 sets, daily range): BP systolic 99–130; BP diastolic 59–85; PULSE 61–86; RESP 13–96; TEMP 36.1–37; O2SAT 95–100
[2024-12-04 05:44] LABS: Basophils % (Auto) 0 % (0-2.5); Eosinophils # (Auto) 0.1 Thou/mm3 (0.0-0.5); Eosinophils % (Auto) 3 % (0-10); Hematocrit 32.5 % (36.0-46.0); Hemoglobin 11.5 g/dL (12.0-16.0); Immature Granulocytes % (Auto) 0 % (0-0); Immature Granulocytes Auto 0.02 Thou/mm3 (0.00-0.00); Lymphocytes # (Auto) 1.9 Thou/mm3 (1.0-4.8); Lymphocytes % (Auto) 39 % (10-50); Mean Corpuscular HGB Conc 35.4 g/dl (31.0-37.0); Mean Corpuscular Hemoglobin 31.8 pg (25.0-35.0); Mean Corpuscular Volume 90 fL (80-100); Monocytes # (Auto) 0.4 Thou/mm3 (0.0-0.8); Monocytes % (Auto) 7 % (0-12); Neutrophils # (Auto) 2.5 Thou/mm3 (1.8-7.7); Neutrophils % (Auto) 50 % (37-80); Nucleated Red Blood Cell % 0 /100 WBC (0); Platelet Count 239 Thou/mm3 (140-440); RDW Standard Deviation 40.4 fL (36.4-46.3); Red Blood Count 3.62 Miln/mm3 (4.00-5.20); White Blood Count 4.9 Thou/mm3 (3.6-11.0)
[2024-12-04 06:38] LABS: Alanine Aminotransferase 7 U/L (10-49); Albumin, Serum 3.3 gm/dL (3.5-5.0); Albumin/Globulin Ratio 1.8 (1.2-2.2); Alkaline Phosphatase 44 U/L (46-116); Anion Gap 9 (7-16); Aspartate Amino Transferase 12 U/L (0-34); BUN/Creatinine Ratio 6 Ratio (12-20); Bilirubin,Total 0.5 mg/dL (0.3-1.2); Blood Urea Nitrogen < 5 mg/dL (9-23); Calcium 8.4 mg/dL (8.3-10.6); Carbon Dioxide 25.4 mMol/L (20.0-31.0); Chloride 108 mMol/L (98-107); Creatinine (Component) 0.8 mg/dL (0.6-1.3); Estimated Creatinine Clearance 82.6 mL/min (>60); Globulin 1.8 gm/dL (2.3-3.5); Glucose 75 mg/dL (74-106); Magnesium 1.9 mg/dL (1.6-2.6); Osmolality,Calculated 279 (275-295); Potassium 3.7 mMol/L (3.4-5.1); Sodium 142 mMol/L (136-145); Total Protein 5.1 gm/dL (5.7-8.2); eGFR > 60 See Note
[2024-12-04] MEDS: PANTOPRAZOLE INJ 40 MG VIAL IVP ×2 (09:03→20:55)
[2024-12-04] MEDS: SUMAtriptan 25 MG TABLET PO ×2 (09:06→16:11)
--- NOTE | 2024-12-04 09:43 | CHAP ---
Patient expressed gratitude for visit and prayer before her scheduled procedure.
--- NOTE | 2024-12-04 11:40 | CHAP ---
Patient was visited by the Spiritual Care Volunteer who prayed for them. (Volunteer was in the hospital from 11:00-11:40)
--- NOTE | 2024-12-04 14:22 | ESOP_ITS ---
Date of Procedure 12/04/24 Pre Op Diagnosis Biliary dyskinesia Post Op Diagnosis Biliary dyskinesia Chronic cholecystitis Procedure Laparoscopic cholecystectomy Findings Moderately distended gallbladder with evidence of chronic cholecystitis Procedure Description Patient was brought into the operating room in supine position. After adminis tration of general endotracheal anesthesia abdomen was prepped and draped in standard surgical manner. A Veress needle was inserted through the umbilicus and pneumoperitoneum was obtained up to 15 mmHg. The Veress needle was then removed, a 5 mm infraumbilical incision was made and the 5mm trocar was inserted. Laparoscopic camera was placed. Under direct visualization a laparoscopic camera a 10 mm trocar was placed in subxiphoid and two 5 mm trocars placed in right upper quadrant. The gallbladder was identified and was noted to be moderately distended with evidence of chronic cholecystitis. It was retracted cephalad and laterally. Dissection started near the infundibulum of gallbladder where cystic duct and gallbladder junction clearly identified. The cystic duct was circumferentially dissected off the peritoneum and surrounding inflammatory tissue. The critical view of safety was clearly demonstrated. Cystic duct was then divided between 2 endoclips proximally and one distally. The cystic artery was similarly dissected and divided. The gallbladder was then from the liver bed using electrocautery. The gallbladder was then placed inside an Endo Catch and removed from the abdomen utilizing subxiphoid trocar site. The area was copiously and thoroughly washed and irrigated, all the fluid was suctioned and the suction fluid returned clear. Hemostasis achieved using electrocautery. Endoclips noted be in place and intact without any bleeding or any leakage. Hemostasis was adequate and satisfactory. The subxiphoid trocar sites fascial defect was closed with 0 Vicryl using Endo Closure device. Instruments and trocars removed, pneumoperitoneum was evacuated and the incisions closed with 4-0 Monocryl in subcuticular fashion. Instrument needle and sponge counts were all reported to be correct X2. Patient tolerated the procedure well, was extubated, breathing spontaneously and without difficulty and was transferred to postanesthesia care in stable condition. Anesthesia GETA and local Pathology / specimen Other (Gallbladder) Estimated Blood Loss 5 Condition Stable Disposition PACU Surgeon Chay Frost MD Surgical Staff Operation Date: 12/04/24 14:30 Case Staff Anesthesiologist: Elian Aparicio RNchemist inorganic: Viviana Smith
--- NOTE | 2024-12-04 14:30 | SUR.PHASEI ---
1430 Patient arrived to recovery resting comfortably in [facility], on oxygen 4L via nasal cannula, breathing unlabored, vital signs stable, denies pain, dressing intact to abdomen; dermabond, no bleeding noted, denies nausea, report received from Hernando BABIN and Dr. Aparicio
--- NOTE | 2024-12-04 14:50 | PC.SS ---
Rounding: Pending jossy paige, will return home upon DC
[2024-12-04] MEDS: KETOROLAC INJ 30 MG/ML VIAL IVP (15:04)
[2024-12-04] MEDS: ONDANSETRON INJ 2 MG/ML INJ 2 ML 4 MG IVP ×2 (15:09→18:09)
--- NOTE | 2024-12-04 15:15 | SUR.PHASEI ---
1509 Patient complained of nausea, Zofran 4mg IVP administered per anesthesia order, will monitor patent 1519 Medication effective, patient denies nausea, is tolerating ice chips
--- NOTE | 2024-12-04 15:28 | SUR.PHASEI ---
1523 Report given to Lauren RN, patient meets discharge criteria from recovery, resting comfortably in gurney with eye closed, on oxygen 2L via nasal cannua, per patient her pain is tolerable, dressing intact; no bleeding noted, eating ice chips; denies nausea 1528 Patient transported via gurney to room 368, accompanied transported, patient able to ambulate from gurney to bed with stand by assist, patient resting in bed with Lauren RN at bedside with patient when this news writer left patient room.
[2024-12-04] MEDS: METOCLOPRAMIDE INJ 5 MG/ML VIAL 2 ML IVP ×2 (16:00→21:57)
[2024-12-04] MEDS: MORPHINE SULF INJ 10 MG/ML VIAL IVP ×3 (16:01→22:03)
--- NOTE | 2024-12-04 17:52 | ESPR_ITS ---
<Statement entered by Fabián Welch MD - 12/05/24 14:34> I discussed with and supervised the sales intern physician involved in the care of this patient. Patient assessment and plan was discussed with entire medicine team, including my attending. I agree with the assessment and plan as documented by sales intern doctor. Patient care was discussed with my attending physician Dr. Kristine Welch, PGY-2 Documentation for date of: 12/04/24 Subjective Subjective Interval history: Patient is seen and examined at bedside Patient underwent EGD yesterday and found to have gastritis Scheduled for cholecystectomy today Vitals are stable. On physical examination, noted tenderness in the epigastric area Will monitor today and planning to discharge tomorrow if the patient remains clinically stable unable to have a bowel movement or able to pass gas Dr. Frost is following the patient and will appreciate his recommendations. Exam Vital Signs Temp Pulse Resp BP Pulse Ox O2 Del Method O2 Flow Rate 98.6 F 68 16 130/68 95 Room Air 2 12/04/24 17:26 12/04/24 17:26 12/04/24 17:26 12/04/24 17:26 12/04/24 17:26 12/04/24 16:00 12/04/24 15:16 Narrative Exam General: Awake. HEENT: Normocephalic, atraumatic, mucous membranes moist. Heart: Regular rate and rhythm, no murmurs. Lungs: Clear to auscultation with no wheezing or crackles. Abdomen: Soft, nondistended, mild to moderate tenderness noted in right upper quadrant and epigastric area, positive bowel sounds. ?No guarding or rebound tenderness. Neurologic: Alert and oriented x3, no gross neurological deficit, and patient able to move all 4 extremities. Extremities: No edema. Skin: No rash or ecchymoses. Objective Labs 12/05/24 05:10 12/05/24 05:10 Labs: Laboratory Results - last 24 hr 12/04/24 04:42 WBC 4.9 RBC 3.62 L Hgb 11.5 L Hct 32.5 L MCV 90 MCH 31.8 MCHC 35.4 RDW Std Deviation 40.4 Plt Count 239 Neut % (Auto) 50 Lymph % (Auto) 39 [place] % (Auto) 7 Eos % (Auto) 3 Baso % (Auto) 0 Neut # (Auto) 2.5 Lymph # (Auto) 1.9 [place] # (Auto) 0.4 Eos # (Auto) 0.1 Baso # (Auto) 0.0 Immature Gran # (Auto) 0.02 H Absolute Nucleated RBC 0.00 Immature Gran % 0 Nucleated RBC % 0 Sodium 142 Potassium 3.7 Chloride 108 H Carbon Dioxide 25.4 Anion Gap 9 BUN < 5 L Creatinine 0.8 Estim Creat Clear Calc 82.6 eGFR > 60 BUN/Creatinine Ratio 6 L Glucose 75 Calculated Osmolality 279 Calcium 8.4 Corrected Calcium 9.0 Magnesium 1.9 Total Bilirubin 0.5 AST 12 ALT 7 L Alkaline Phosphatase 44 L Total Protein 5.1 L Albumin 3.3 L Globulin 1.8 L Albumin/Globulin Ratio 1.8 Quality Measures Quality Measures none Assessment & Plan Assessment Current Active Medications: Generic Name Dose Route Start Last Admin Trade Name Freq PRN Reason Stop Dose Admin Acetaminophen 650 mg 12/02/24 22:19 12/03/24 14:28 Acetaminophen 325 Mg Tablet PO 01/01/25 22:18 650 mg Q6H PRN Administration pain 1-3 and Fever >100.4 Hydrocodone Bitart/Acetaminophen 1 tab 12/02/24 22:19 12/03/24 22:19 Hydrocodone/Apap 5/325 Tablet PO 12/07/24 22:18 1 tab Q4HR PRN Administration PAIN SCALE 4-6 (Moderate Docusate Sodium 100 mg 12/04/24 21:00 Docusate Sod 100 Mg Capsule PO 01/03/25 20:59 BID [facility] Protocol Levothyroxine Sodium 88 mcg 12/04/24 06:00 12/04/24 06:44 Levothyroxine Sodium 88 Mcg Tablet PO 01/03/25 05:59 Not Given ACBR [facility] Metoclopramide HCl 5 mg 12/03/24 08:23 12/04/24 16:00 Metoclopramide Inj 5 Mg/Ml Vial 2 Ml IVP 01/02/25 11:59 5 mg Q6HR PRN Administration NAUSEA OR VOMITING Protocol Morphine Sulfate 1 mg 12/02/24 22:19 12/04/24 16:01 Morphine Sulf Inj 10 Mg/Ml Vial IVP 12/07/24 22:18 1 mg Q2H PRN Administration PAIN SCALE 7-10 (Severe Pantoprazole Sodium 40 mg 12/03/24 09:00 12/04/24 09:03 Pantoprazole Inj 40 Mg Vial IVP 01/02/25 08:59 40 mg BID ASHANTI Administration Sumatriptan Succinate 25 mg 12/03/24 15:20 12/04/24 16:11 Sumatriptan 25 Mg Tablet PO 01/02/25 15:19 25 mg Q6HR PRN Administration HEADACHE (MIGRAINE) Plan 48-year-old female with past medical history of hypothyroidism was admitted to the hospital on 12/02/2024 for intractable epigastric pain likely 2/2 to gastric ulcer. #Intractable epigastric pain # 2/2 Gastritis vs Gall bladder dyskinesia Patient has been having epigastric pain around 2 weeks and this is exacerbated with eating. Abdomen/pelvis CT that showed gastritis pattern Gallbladder ultrasound did not show any stones or abnormality. HIDA scan showed EF 12% suggesting decreased motility DDx includes peptic ulcer disease in the setting of NSAIDs usage vs Gall bladder dysmotility Plan: Protonix twice daily IV fluids, LR @ 125 ml/hr Pain management with morphine, [place], and Tylenol GI consulted, appreciate commendations - UGI endoscopy showed Gastritis Consulted Dr. Frost, in view of abnormal gallbladder ejection fraction - recommended lap cholecystectomy today # Migraine headaches - Patient reported that she is having migraine headaches since a long time - Following Dr. Reyes, gets Botox injections every 3 months and also endorsed that Nurtec is not helping her - Reported that she is using ibuprofen for the headaches continuously, 4-5 times in a week last dose was 1 week ago-which could be the cause of gastritis Plan - Started on sumatriptan 25 mg as needed every 6 hourly and Tylenol as needed #Hypothyroidism Restart levothyroxine after med reconciliation is done TSH is WNL during this admission Disposition: Patient admitted to med surg Diet: NPO midnight GI prophylaxis: protonix DVT prophylaxis: SCDs Code: Full Patient plan of care was discussed with the attending physician, Dr. Carmona and senior resident Dr. Yuri Fernandez, PGY1 Attending Provider Attestation/Addendum Leonel, Indigo Carmona, DO, attest that I was physically present for the [place] portions of the service and evaluated the patient with the resident and I reviewed and discussed the case with the resident and agree with the resident's findings and plans of care as documented above Patient seen and evaluated this AM. Patient reports some nausea, but no abdominal pain. Abdomen is soft, nontender and nondistended. Patient is schedule for lap grecia today. Will f/u with surgeon's recommendations after surgery. Anticipate DC within next 24h. Patient has otherwise been afebrile.
--- NOTE | 2024-12-04 19:36 | PD.IMPROG ---
Documentation for date of: 12/04/24 Subjective Subjective Interval history: Patient underwent laparoscopic cholecystectomy performed moderately distended gallbladder with evidence of chronic cholecystitis Exam Vital Signs Temp Pulse Resp BP Pulse Ox O2 Del Method O2 Flow Rate 98.6 F 75 18 130/68 95 Room Air 2 12/04/24 17:26 12/04/24 18:57 12/04/24 18:57 12/04/24 17:26 12/04/24 17:26 12/04/24 16:00 12/04/24 15:16 Objective Labs 12/04/24 04:42 12/04/24 04:42 Labs: Laboratory Results - last 24 hr 12/04/24 04:42 WBC 4.9 RBC 3.62 L Hgb 11.5 L Hct 32.5 L MCV 90 MCH 31.8 MCHC 35.4 RDW Std Deviation 40.4 Plt Count 239 Neut % (Auto) 50 Lymph % (Auto) 39 [place] % (Auto) 7 Eos % (Auto) 3 Baso % (Auto) 0 Neut # (Auto) 2.5 Lymph # (Auto) 1.9 [place] # (Auto) 0.4 Eos # (Auto) 0.1 Baso # (Auto) 0.0 Immature Gran # (Auto) 0.02 H Absolute Nucleated RBC 0.00 Immature Gran % 0 Nucleated RBC % 0 Sodium 142 Potassium 3.7 Chloride 108 H Carbon Dioxide 25.4 Anion Gap 9 BUN < 5 L Creatinine 0.8 Estim Creat Clear Calc 82.6 eGFR > 60 BUN/Creatinine Ratio 6 L Glucose 75 Calculated Osmolality 279 Calcium 8.4 Corrected Calcium 9.0 Magnesium 1.9 Total Bilirubin 0.5 AST 12 ALT 7 L Alkaline Phosphatase 44 L Total Protein 5.1 L Albumin 3.3 L Globulin 1.8 L Albumin/Globulin Ratio 1.8 Impressions Impression: Severe abdominal pain due to biliary dyskinesia Status post laparoscopic cholecystectomy with distended gallbladder and evidence of acute on chronic cholecystitis Gastritis Esophagitis Advance diet as tolerated Assessment & Plan A&P Narrative Intractable abdominal pain with nausea and postprandial exacerbation Differential diagnoses include Atypical biliary disease Peptic ulcer disease Plan N.p.o. IV fluids IV Protonix Pain control CCK HIDA scan with ejection fraction of the gallbladder Consent obtained for fiberoptic esophagogastroduodenoscopy with possible biopsy possible therapeutic intervention under intravenous moderate sedation Care plan discussed with the admitting resident Thank you very much for the opportunity to participate in the care of this patient Time Spent With Patient Time: Total time spent is greater than 50% in coordination of care (as documented) at patient's floor/unit and/or counseling patient:
[2024-12-04] MEDS: DOCUSATE SOD 100 MG CAPSULE PO (20:55)
[2024-12-04] MEDS: HYDROcodone/APAP 5/325 TABLET 1 TAB PO (21:06)
--- NOTE | 2024-12-04 21:11 | PC.NURSE ---
seen and examined by Dr. Abdi.
[2024-12-05] VITALS: BP 105/63; PULSE 87; RESP 20; TEMP 36.4; O2SAT 93
[2024-12-05 04:00] VITALS: BP 111/56; RESP 16; TEMP 36.4; O2SAT 97
[2024-12-05] MEDS: LEVOTHYROXINE SODIUM 88 MCG TABLET PO (05:49)
[2024-12-05 05:50] LABS: Basophils % (Auto) 0 % (0-2.5); Eosinophils % (Auto) 0 % (0-10); Hematocrit 35.8 % (36.0-46.0); Hemoglobin 12.6 g/dL (12.0-16.0); Immature Granulocytes % (Auto) 0 % (0-0); Immature Granulocytes Auto 0.05 Thou/mm3 (0.00-0.00); Lymphocytes # (Auto) 0.8 Thou/mm3 (1.0-4.8); Lymphocytes % (Auto) 6 % (10-50); Mean Corpuscular HGB Conc 35.2 g/dl (31.0-37.0); Mean Corpuscular Volume 88 fL (80-100); Monocytes # (Auto) 0.2 Thou/mm3 (0.0-0.8); Monocytes % (Auto) 2 % (0-12); Neutrophils % (Auto) 92 % (37-80); Nucleated Red Blood Cell % 0 /100 WBC (0); Platelet Count 282 Thou/mm3 (140-440); RDW Standard Deviation 39.2 fL (36.4-46.3); Red Blood Count 4.06 Miln/mm3 (4.00-5.20); White Blood Count 13.1 Thou/mm3 (3.6-11.0)
[2024-12-05 06:19] LABS: Alanine Aminotransferase 30 U/L (10-49); Albumin/Globulin Ratio 1.9 (1.2-2.2); Alkaline Phosphatase 54 U/L (46-116); Anion Gap 11 (7-16); Aspartate Amino Transferase 30 U/L (0-34); BUN/Creatinine Ratio 6 Ratio (12-20); Bilirubin,Total 0.6 mg/dL (0.3-1.2); Blood Urea Nitrogen < 5 mg/dL (9-23); Carbon Dioxide 23.9 mMol/L (20.0-31.0); Chloride 103 mMol/L (98-107); Creatinine (Component) 0.8 mg/dL (0.6-1.3); Estimated Creatinine Clearance 82.6 mL/min (>60); Globulin 2.1 gm/dL (2.3-3.5); Glucose 114 mg/dL (74-106); Magnesium 1.9 mg/dL (1.6-2.6); Osmolality,Calculated 273 (275-295); Potassium 4.1 mMol/L (3.4-5.1); Sodium 138 mMol/L (136-145); Total Protein 6.1 gm/dL (5.7-8.2); eGFR > 60 See Note
[2024-12-05 08:00] VITALS: BP 108/60; PULSE 70; RESP 16; TEMP 36.6; O2SAT 100
[2024-12-05] MEDS: PANTOPRAZOLE INJ 40 MG VIAL IVP (08:08)
[2024-12-05] MEDS: DOCUSATE SOD 100 MG CAPSULE PO (08:08)
--- NOTE | 2024-12-05 08:34 | PD.SURPROG ---
Documentation for date of: 12/05/24 Subjective Subjective Narrative: Patient is seen and examined. She has some epigastric incisional tenderness. She is tolerating liquids without nausea or vomiting and passing flatus Exam Vital Signs Temp Pulse Resp BP Pulse Ox O2 Del Method O2 Flow Rate 97.6 F 87 16 111/56 L 97 Room Air 2 12/05/24 04:00 12/05/24 00:00 12/05/24 04:00 12/05/24 04:00 12/05/24 04:00 12/05/24 04:00 12/04/24 15:16 Constitutional Constitutional: no acute distress Routine Abdominal Exam Comments: Abdomen is soft and not distended. Incisions with dressing clean, dry and intact. She has minimal tenderness around the incisions Assessment & Plan Assessment Additional comments: Postop day #1 status post laparoscopic cholecystectomy Plan Advance to low-fat diet. May discharge home after lunch if okay with Dr. Abdi Procedures Procedures Laparoscopic cholecystectomy
[2024-12-05 08:55] VITALS: PULSE 57; RESP 100; RESP 18
[2024-12-05] MEDS: bisacodyL 5 MG TABEC 10 MG PO (10:09)
[2024-12-05] MEDS: bisacodyL 10 MG SUPP PR (10:09)
--- NOTE | 2024-12-05 10:19 | ESPR_ITS ---
Documentation for date of: 12/05/24 Subjective Subjective Interval history: Patient clinically improved can be discharged home follow-up in my office In 1 week Exam Vital Signs Temp Pulse Resp BP Pulse Ox O2 Del Method O2 Flow Rate 97.9 F 57 L 18 108/60 100 Room Air 2 12/05/24 08:00 12/05/24 08:55 12/05/24 08:55 12/05/24 08:00 12/05/24 08:00 12/05/24 08:00 12/04/24 15:16 Objective Labs 12/05/24 05:10 12/05/24 05:10 Labs: Laboratory Results - last 24 hr 12/05/24 05:10 WBC 13.1 H D RBC 4.06 Hgb 12.6 Hct 35.8 L MCV 88 MCH 31.0 MCHC 35.2 RDW Std Deviation 39.2 Plt Count 282 D Neut % (Auto) 92 H Lymph % (Auto) 6 L [place] % (Auto) 2 Eos % (Auto) 0 Baso % (Auto) 0 Neut # (Auto) 12.0 H Lymph # (Auto) 0.8 L [place] # (Auto) 0.2 Eos # (Auto) 0.0 Baso # (Auto) 0.0 Immature Gran # (Auto) 0.05 H Absolute Nucleated RBC 0.00 Immature Gran % 0 Nucleated RBC % 0 Sodium 138 Potassium 4.1 Chloride 103 Carbon Dioxide 23.9 Anion Gap 11 BUN < 5 L Creatinine 0.8 Estim Creat Clear Calc 82.6 eGFR > 60 BUN/Creatinine Ratio 6 L Glucose 114 H D Calculated Osmolality 273 L Calcium 9.0 Corrected Calcium 9.0 Magnesium 1.9 Total Bilirubin 0.6 AST 30 ALT 30 Alkaline Phosphatase 54 D Total Protein 6.1 Albumin 4.0 D Globulin 2.1 L Albumin/Globulin Ratio 1.9 Impressions Impression: Status postcholecystectomy for biliary dyskinesia Nausea Gastritis Esophagitis Plan as in HPI Assessment & Plan A&P Narrative Intractable abdominal pain with nausea and postprandial exacerbation Differential diagnoses include Atypical biliary disease Peptic ulcer disease Plan N.p.o. IV fluids IV Protonix Pain control CCK HIDA scan with ejection fraction of the gallbladder Consent obtained for fiberoptic esophagogastroduodenoscopy with possible biopsy possible therapeutic intervention under intravenous moderate sedation Care plan discussed with the admitting resident Thank you very much for the opportunity to participate in the care of this patient Time Spent With Patient Time: Total time spent is greater than 50% in coordination of care (as documented) at patient's floor/unit and/or counseling patient:
[2024-12-05 12:00] VITALS: BP 120/61; PULSE 92; RESP 18; TEMP 36.3; O2SAT 99
--- NOTE | 2024-12-05 13:34 | ESDS_ITS ---
<Statement entered by Indigo Carmona DO - 12/06/24 08:39> I, Indigo Carmona DO, attest that I was physically present for the villalpando portions of the service and evaluated the patient with the resident and I reviewed and discussed the case with the resident and agree with the resident's findings and plans of care as documented above Planned Discharge Date 12/05/24 DS: Providers Provider Date of admission: 12/02/24 22:19 Primary care physician: Sky Velasquez MD Admitting Provider: Juli Rudd MD Attending Provider on Admission: Indigo Carmona DO Consults: 12/02/24 20:41 Consult to Gastroenterology Stat Comment: Intractable epigastric pain Consulting Provider: Rebel Abdi 12/03/24 15:13 Consult to General Surgery Routine Comment: For abnormal gall bladder EF Consulting Provider: Chay Frost Attending Provider on DC: Mateo Fernandez MD Discharging Provider: Mateo Fernandez MD DS: Diagnosis Problem List Completed Was Problem List Reviewed/Reconciled?: Yes Hospital Course Hospital Course Hospital course: 48-year-old female with past medical history of hypothyroidism was admitted to the hospital on 12/02/2024 after come to the ED due to intractable epigastric pain for 2 weeks. Hospital course: Initially came in afebrile and normotensive. Initial labs were unremarkable For urine which showed positive for bacteria. Imaging included gallbladder ultrasound which did not show any cholecystitis or cholelithiasis and abdomen/pelvis CT that did show gastritis pattern. [employer], Dr. Abdi was consulted and he did an upper GI endoscopy which showed esophagitis, gastritis. HIDA scan showed decreased EF, 12%. General surgeon, Dr. Frost was consulted and patient underwent lap cholecystectomy on 12/04/2024, the procedure went uneventful. Patient was treated with antibiotics, fluids, PPI, sumatriptan during the hospital stay. Patient tolerated diet well after undergoing surgery. Patient is discharged to home with the following medications and recommendations -Follow-up with PCP within 1 week of discharge. If you do not have appointment, please follow-up with the [facility] with Dr. Fernandez. Call [phone] to make an appointment. -Follow up with Dr. Frost within 2 weeks of discharge. -Recommended to take docusate 100 mg p.o. twice daily, Divide as needed every 6 hourly for pain, ondansetron 4 mg every 8 hourly as needed for nausea -Recommended to continue levothyroxine 88 mcg once every day on empty stomach, omeprazole 40 Mg p.o. daily -Recommend to follow-up with Dr. Abdi after discharge -Return to ED if symptoms persist or return #Intractable epigastric pain # 2/2 Gastritis vs Gall bladder dyskinesia s/p cholecystectomy # Migraine headaches #Hypothyroidism Patient plan of care was discussed with the attending physician, Dr. Kristine Fernandez, PGY1 Time Spent with Patient Time attestation: Total time spent providing and/or coordinating discharge services: Time spent: Greater than 30 minutes Exam Vital Signs Temp Pulse Resp BP Pulse Ox O2 Del Method O2 Flow Rate 97.4 F 92 18 120/61 99 Room Air 2 12/05/24 12:00 12/05/24 12:12/05/24 12:12/05/24 12:12/05/24 12:12/05/24 12:12/04/24 15:16 Narrative Exam General: Awake. HEENT: Normocephalic, atraumatic, mucous membranes moist. Heart: Regular rate and rhythm, no murmurs. Lungs: Clear to auscultation with no wheezing or crackles. Abdomen: Soft, nondistended, mild to moderate tenderness noted in right upper quadrant and epigastric area, positive bowel sounds. ?No guarding or rebound tenderness. noted well healing scars Neurologic: Alert and oriented x3, no gross neurological deficit, and patient able to move all 4 extremities. Extremities: No edema. Skin: No rash or ecchymoses. Discharge Plan Plan Patient Disposition: HOME (Self Care) Patient condition on transfer: Stable Care Plan Goals: -Follow-up with PCP within 1 week of discharge. If you do not have appointment, please follow-up with the [facility] with Dr. Fernandez. Call [phone] to make an appointment. -Follow up with Dr. Frost within 2 weeks of discharge. -Recommended to take docusate 100 mg p.o. twice daily, Divide as needed every 6 hourly for pain, ondansetron 4 mg every 8 hourly as needed for nausea -Recommended to continue levothyroxine 88 mcg once every day on empty stomach, omeprazole 40 Mg p.o. daily -Recommend to follow-up with Dr. Abdi after discharge -Return to ED if symptoms persist or return Prescriptions/Referrals Prescriptions/Med Rec: New docusate sodium [Colace] 100 mg capsule 100 mg PO BID Qty: 30 0RF hydrocodone-acetaminophen 5-325 mg tablet 1 tab PO Q6H MDD 4 PRN (Reason: pain (scale score 7-10)) Qty: 10 0RF ondansetron 4 mg tablet,disintegrating 4 mg PO Q8H PRN (Reason: nausea and vomiting) Qty: 20 0RF Continued omeprazole 40 mg capsule,delayed release(DR/EC) 40 mg PO QDAY Qty: 30 0RF levothyroxine 88 mcg tablet 88 mcg PO QDAY Patient Comments: TAKE 1 TABLET BY MOUTH EVERY DAY Discontinued famotidine 40 mg tablet 40 mg PO .bedtime Qty: 30 0RF ondansetron 4 mg tablet,disintegrating 4 mg PO TID PRN (Reason: nausea and vomiting) 30 Days Qty: 10 0RF nitrofurantoin monohyd/m-cryst [Macrobid] 100 mg capsule 100 mg PO BID Qty: 14 0RF Rx Instructions: must administer with a meal/food levothyroxine 75 mcg tablet 75 mcg PO DAILY Patient Comments: take 1 tablet by mouth once daily pantoprazole 40 mg tablet,delayed release (DR/EC) 40 mg PO DAILY Patient Comments: TAKE 1 TABLET BY MOUTH ONCE DAILY clonazepam 2 mg tablet 2 mg PO BID Patient Comments: TAKE 1 TABLET BY MOUTH TWICE A DAY nortriptyline 50 mg capsule 50 mg PO HS Patient Comments: TAKE 1 CAPSULE BY MOUTH EVERY DAY AT NIGHT sennosides-docusate sodium [Senna-S] 8.6-50 mg tablet 1 tab-cap PO QDAY Qty: 30 0RF Referrals: Sky Velasquez MD [Primary Care Provider] - Patient/Caregiver Discharge Instructions Discharge Activity: activity as tolerated Education Materials: Abdominal Pain, Understanding Gastritis, Measuring Your Pain, Medicine for Pain, Preventing Surgical Site Infections Print Language: Divehi Activity Restrictions/Additional Instructions: May shower in 24 hours. Avoid lifting, straining, pulling or pushing for 4 weeks. May take over the counter laxatives if no bowel movement in 2 days. Follow up with Dr. Frost in 2 weeks, call [phone] for an appointment. May have low-fat diet for 1 week then advance diet as tolerated. Stand Alone Forms: [facility] Award Info., Patient Portal Info Letter Discharge Order Discharge Orders: Discharge (Routine); Ordered 12/05/24 Ordered By: Mateo Fernandez Quality Discharge Quality Measures VTE prophylaxis
== END 2024-12-05 15:25 | disposition home or self-care (01) | DRG 419 ==
LOC: SERX 20:13 → SERHOLD 22:41 → S3SX 23:08
PROVIDERS: Nurse Practitioner Primary Care; Specialist; Surgery; Admitting Provider Student in an Organized Health Care Education/Training Program; Emergency Provider Emergency Medicine; PCP Internal Medicine; Visit Provider Internal Medicine
PROC: 0DB38ZX Excision of Lower Esophagus, Via Natural or Artificial Opening Endoscopic, Diagnostic (ICD-10-PCS; CPT 43239; principal; 2024-12-03 20:00)
PROC: 0FT44ZZ Resection of Gallbladder, Percutaneous Endoscopic Approach (ICD-10-PCS; CPT 47562; principal; 2024-12-04 14:15)
DX: K82.8 Other specified diseases of gallbladder (principal); K29.70 Gastritis, unspecified, without bleeding; K81.1 Chronic cholecystitis; K20.90 Esophagitis, unspecified without bleeding; E03.9 Hypothyroidism, unspecified; G43.909 Migraine, unspecified, not intractable, without status migrainosus; Z79.890 Hormone replacement therapy
CPT/HCPCS: 36415; 74177; 76705; 78227; 80053; 80061; 81001; 81025; 83690; 83735; 84443; 85025; 87077; 87086; 87186; 96361; 96374; 96375; 99285; A4217; A4649; A9537; J0131; J0694; J1200; J1885; J2250; J2270; J2371; J2405; J2470; J2704; J2765; J2805; J3010; J3490; J7030; J7050; J7120; Q9967; A9270

== ENCOUNTER → 2025-03-10 | Outpatient (CLI) | payer BC, OTHER, SELFPAY ==
[2025-03-10 15:12] LABS: Collection Type, Urine Clean Catch
[2025-03-10 16:51] LABS: Bilirubin,Urine Negative (Negative); Blood,Urine Trace (Negative); Clarity,Urine Clear (Clear/Hazy); Color,Urine Lt-Yellow (Lt Yel-Yel); Glucose, Urine Negative (Negative); Ketones,Urine Negative (Negative); Leukocyte Esterase,Urine Negative (Negative); Nitrite,Urine Negative (Negative); PH,Urine 6.5 (5.0-7.0); Protein,Urine Negative (Neg - Trace); RBC,Urine < 1 /hpf (0-3); Specific Gravity,Urine 1.008 (1.001-1.035); Squamous Epithelial Cell,Urine 1 /hpf (0-5); Urobilinogen,Urine Negative mg/dL (0.0-1.0); WBC,Urine < 1 /hpf (0-5)
== END | disposition home or self-care (01) ==
LOC: SLDO 15:01
PROVIDERS: PCP Nurse Practitioner Family; Referring Provider Nurse Practitioner Family; Visit Provider Nurse Practitioner Family
DX: N39.0 Urinary tract infection, site not specified (principal)
CPT/HCPCS: 81001; 87086